=== PATIENT | female | born 1970 | race Caucasian/White ===

== ENCOUNTER 2016-06-23 18:10 | Emergency (ER) | payer OTHER ==
[2016-06-23 18:40] VITALS: BP 143/93; PULSE 61; TEMP 98; BMI 24.7
--- NOTE | 2016-06-23 19:47 | PDOC ---
[id number]/SORE THROAT Time Seen by Provider: 06/23/16 19:47 History Source: Patient - History of Present Illness Initial Comments: 06/23/16 20:03 46 YEAR OLD FEMALE WITH dysuria and suprapubic pain x1 day. + chills denies fever, NV, flank pain. patient also complaining of sore throat since last night. no drooling, mild discomfort with swallowing. Past History - Past Medical History Allergies/Adverse Reactions: Allergies Allergy/AdvReac Type Severity Reaction Status Date / Time No Known Allergies Allergy Verified 06/23/16 18:36 Home Medications: Ambulatory Orders Nitrofurantoin Monohyd/M-Cryst [Macrobid -] 100 mg PO BID #14 capsule 06/23/16 Asthma: No Cancer: No Cardiac Disorders: No Diabetes: Yes (GESTATIONAL) HTN: No Seizures: No Thyroid Disease: No - Surgical History Cholecystectomy: Yes - Reproductive History Spontaneous : 0 - Immunization History Immunization Up to Date: Yes - Psycho/Social/Smoking Cessation Hx Anxiety: No Suicidal Ideation: No Smoking Status: No Smoking History: Never smoked Number of Cigarettes Smoked Daily: 0 Information on smoking cessation initiated: No Hx Alcohol Use: No Drug/Substance Use Hx: No Substance Use Type: None Hx Substance Use Treatment: No Abd/GI Specific PMHX - Complaint Specific PMHX Gall Bladder Disease: No GERD: No Irritable Bowel Synd (IBS): No Pancreatitis: No Review of Systems - Review of Systems Able to Perform ROS?: Yes Is the patient limited Albanian proficient: No HEENTM: Yes: Throat Pain ABD/GI: No: Symptoms Reported, See HPI, Abdominal Distended, Abd. Pain w/ defecation, Blood Streaked Bowels, Constipated, Diarrhea, Difficulty Swallowing , Nausea, Poor Appetite, Poor Fluid Intake, Rectal Bleeding, Vomiting, Indigestion, Abdominal cramping, Tarry Stools, Other : Yes: Dysuria, Frequency. No: Symptoms Reported, See HPI, Burning, Discharge , Flank Pain, Hematuria, Incontinence, Pain, Urgency, Testicular Mass, Testicular Swelling, Lesions, Testicular Pain, Other *Physical Exam - Vital Signs Last Vital Signs Temp Pulse Resp BP Pulse Ox 98 F 61 18 143/93 98 06/23/16 18:34 06/23/16 18:34 06/23/16 18:34 06/23/16 18:34 06/23/16 18:34 - Physical Exam General Appearance: Yes: Appropriately Dressed HEENT: positive: Other (mild pharyngeal erythema) Respiratory/Chest: positive: Lungs Clear, Normal Breath Sounds Cardiovascular: positive: Regular Rhythm, Regular Rate Gastrointestinal/Abdominal: positive: Normal Bowel Sounds, Tender (suprapubic tenderness), Soft Musculoskeletal: positive: Normal Inspection. negative: CVA Tenderness Extremity: positive: Normal Capillary Refill, Normal Inspection, Normal Range of Motion Integumentary: positive: Normal Color, Dry, Warm Neurologic: positive: Fully Oriented, Alert, Normal Mood/Affect, Normal Response , Motor Strength 5/5 Progress Note - Progress Note Progress Note: A: UTI P: UA UCX *DC/Admit/Observation/Transfer Diagnosis at time of Disposition: UTI (urinary tract infection) Qualifiers: Urinary tract infection type: acute cystitis Hematuria presence: with hematuria Qualified Code(s): N30.01 - Acute cystitis with hematuria - Discharge Dispostion Disposition: HOME - Prescriptions Prescriptions: Nitrofurantoin Monohyd/M-Cryst [Macrobid -] 100 mg PO BID #14 capsule - Referrals Referrals: Jonathan West [Primary Care Provider] - - Patient Instructions Printed Discharge Instructions: Urinary Tract Infection Additional Instructions: drink plenty of fluids. take macrobid as prescribed. follow up with your doctor
[2016-06-23 20:04] LABS: URINE APPEARANCE SLCLOUDY; URINE BILIRUBIN NEGATIVE (NEGATIVE); URINE COLOR LTYELLOW; URINE GLUCOSE (UA) NEGATIVE (NEGATIVE); URINE KETONE NEGATIVE (NEGATIVE); URINE NITRITE NEGATIVE (NEGATIVE); URINE PROTEIN NEGATIVE (NEGATIVE); URINE UROBILINOGEN NEGATIVE E.U./dl (0.2-1.0)
[2016-06-23 20:08] LABS: URINE BLOOD 2+ (NEGATIVE); URINE LEUK ESTERASE 2+ (NEGATIVE)
[2016-06-23 20:09] LABS: URINE BACTERIA RARE /hpf (NONE SEEN); URINE RBC 5 /hpf (0-3); URINE WBC 40 /hpf (3-5)
[2016-06-23] MEDS ORDERED: NITROFURANTOIN MACROCRYSTAL 50 MG CAPSULE (FP) PO SCH (20:30)
[2016-06-23] MEDS ORDERED: NITROFURANTOIN MACROCRYSTAL 50 MG CAPSULE (FP) ONE (20:32)
== END 2016-06-23 20:38 | disposition home or self-care (01) ==
LOC: JER 18:10 → JERFT 18:10 → JER 20:38
DX: N30.01 Acute cystitis with hematuria (principal); Z86.32 Personal history of gestational diabetes
CPT/HCPCS: 81003; 81015; 87070; 87086; 87430; 99283-25

== ENCOUNTER 2016-07-18 17:21 | Emergency (ER) | payer OTHER ==
[2016-07-18 17:50] VITALS: BP 139/88; PULSE 63; TEMP 97; BMI 25.0
[2016-07-18] MEDS ORDERED: CYCLOBENZAPRINE HCL 10 MG TABLET (FP) PO ONE (18:44)
[2016-07-18] MEDS ORDERED: KETOROLAC TROMETHAMINE 60 MG/2 ML VIAL IM ONE (18:44)
--- NOTE | 2016-07-18 18:50 | PDOC ---
History of Present Illness - General Chief Complaint: Back Pain Stated Complaint: BACK PAIN Time Seen by Provider: 07/18/16 18:37 History Source: Patient - History of Present Illness Occurred: reports: other Pain Location: reports: back Past History - Past Medical History Allergies/Adverse Reactions: Allergies Allergy/AdvReac Type Severity Reaction Status Date / Time No Known Allergies Allergy Verified 07/18/16 17:50 Home Medications: Ambulatory Orders Nitrofurantoin Monohyd/M-Cryst [Macrobid -] 100 mg PO BID #14 capsule 06/23/16 Cyclobenzaprine HCl [Flexeril 10 mg] 10 mg PO TID PRN #9 tablet 07/18/16 Ibuprofen [Motrin -] 800 mg PO Q6H #30 tablet 07/18/16 Asthma: No Cancer: No Cardiac Disorders: No Diabetes: Yes (GESTATIONAL) HTN: No Seizures: No Thyroid Disease: No - Surgical History Cholecystectomy: Yes - Reproductive History Spontaneous : 0 - Immunization History Immunization Up to Date: Yes - Psycho/Social/Smoking Cessation Hx Anxiety: No Suicidal Ideation: No Smoking Status: No Smoking History: Never smoked Have you smoked in the past 12 months: No Number of Cigarettes Smoked Daily: 0 Information on smoking cessation initiated: No Hx Alcohol Use: No Drug/Substance Use Hx: No Substance Use Type: None Hx Substance Use Treatment: No Review of Systems - Review of Systems Constitutional: No: Chills, Fever ABD/GI: No: Abdominal cramping : No: Burning, Dysuria, Flank Pain, Hematuria Musculoskeletal: No: Muscle Weakness Neurological: No: Numbness, Tingling, Weakness *Physical Exam - Vital Signs Last Vital Signs Temp Pulse Resp BP Pulse Ox 97.0 F L 63 20 139/88 100 07/18/16 17:46 07/18/16 17:46 07/18/16 17:46 07/18/16 17:46 07/18/16 17:46 - Physical Exam General Appearance: Yes: Appropriately Dressed. No: Apparent Distress HEENT: positive: Normal Voice Neck: positive: Supple Respiratory/Chest: negative: Respiratory Distress Gastrointestinal/Abdominal: positive: Soft. negative: Tender Musculoskeletal: positive: Normal Inspection, Other (+ttp to R lumbar area). negative: CVA Tenderness Extremity: positive: Normal Inspection Integumentary: positive: Dry, Warm Neurologic: positive: Fully Oriented, Alert, Normal Mood/Affect Medical Decision Making - Medical Decision Making 07/18/16 18:47 46-year-old female, endorses history of chronic lower back pain, p/w worsening of her back pain 1 week after lifting up her 7-year-old special needs stepdaughter. Pain located to R lower back, does not radiate and no lower extremity weakness, saddle anesthesia or bowel or bladder incontinence. Taking tylenol w/no relief. Patient states she had an MRI last year of her lower back which did not reveal any abnormalities. Follows up with her PMD. See exam Acute on chronic back pain No red flags at this time, i.e. cauda equina, infxn -Pain control -Reassess 07/18/16 19:15 Pt reports feeling better and requesting discharge. Rxs sent to pharmacy. Pt to f/u with PMD if pain persists *DC/Admit/Observation/Transfer Diagnosis at time of Disposition: Back pain Qualifiers: Back pain location: low back pain Chronicity: acute Back pain laterality: right Sciatica presence: without sciatica Qualified Code(s): M54.5 - Low back pain - Discharge Dispostion Disposition: HOME Condition at time of disposition: Improved - Prescriptions Prescriptions: Cyclobenzaprine HCl [Flexeril 10 mg] 10 mg PO TID PRN #9 tablet PRN Reason: Back Pain Ibuprofen [Motrin -] 800 mg PO Q6H #30 tablet - Referrals Referrals: Jonathan West [Primary Care Provider] - - Patient Instructions Printed Discharge Instructions: Low Back Pain Additional Instructions: Take medications as prescribed and follow-up with your PMD
[2016-07-18] MEDS ORDERED: CYCLOBENZAPRINE HCL 10 MG TABLET (FP) ONE (19:05)
[2016-07-18] MEDS ORDERED: KETOROLAC TROMETHAMINE 60 MG/2 ML VIAL ONE (19:05)
== END 2016-07-18 19:24 | disposition home or self-care (01) ==
LOC: JERFT 17:21
PROC: 3E0233Z Introduction of Anti-inflammatory into Muscle, Percutaneous Approach (ICD-10-PCS; principal; 2016-07-18)
DX: M54.5 Low back pain (principal); X50.0XXA Overexertion from strenuous movement or load, initial encounter; Y93.F2 Activity, caregiving, lifting; Y92.038 Other place in apartment as the place of occurrence of the external cause; Y99.8 Other external cause status
CPT/HCPCS: 96372; 99281-25

== ENCOUNTER 2016-07-24 20:56 | Emergency (ER) | payer OTHER ==
--- NOTE | 2016-07-24 21:05 | PDOC ---
History of Present Illness <Jimmy Phelps - Last Filed: 07/24/16 22:04> - History of Present Illness Initial Comments: 07/24/16 22:12 Patient is a 46 year old female with no significant medical hx who is presenting to the ED with three days of sore throat, difficulty swallowing, low grade fever, and rash. The patient endorses a rash that is all over and non- itching. Patient is accompanied by who states he's been giving her benadryl and aleve. Patient reports her children had strep throat two weeks ago. Denies chest pain, shortness of breath, abdominal pain, nausea, vomiting, diarrhea, or complaints. <Lena Gaines - Last Filed: 07/24/16 22:24> - General Chief Complaint: Rash Stated Complaint: SORE THROAT Time Seen by Provider: 07/24/16 21:04 Past History - Past Medical History Asthma: No Cancer: No Cardiac Disorders: No Diabetes: Yes (GESTATIONAL) HTN: No Seizures: No Thyroid Disease: No - Surgical History Cholecystectomy: Yes - Reproductive History Spontaneous : 0 - Immunization History Immunization Up to Date: Yes - Psycho/Social/Smoking Cessation Hx Anxiety: No Suicidal Ideation: No Smoking Status: No Smoking History: Never smoked Have you smoked in the past 12 months: No Number of Cigarettes Smoked Daily: 0 Hx Alcohol Use: No Drug/Substance Use Hx: No Substance Use Type: None Hx Substance Use Treatment: No <Jimmy Phelps - Last Filed: 07/24/16 22:04> <Lena Gaines - Last Filed: 07/24/16 22:24> - Past Medical History Allergies/Adverse Reactions: Allergies Allergy/AdvReac Type Severity Reaction Status Date / Time No Known Allergies Allergy Verified 07/24/16 21:06 Home Medications: Ambulatory Orders NK [No Known Home Medication] 07/24/16 Review of Systems - Review of Systems Comments:: 07/24/16 22:19 CONSTITUTIONAL: Low grade fever. No chills, no fatigue EYES: No visual changes ENT: Sore throat, difficulty swallowing. No ear pain CARDIOVASCULAR: No chest pain, no palpitations RESPIRATORY: No cough, no SOB GI: No abdominal pain, no nausea, no vomiting, no constipation, no diarrhea GENITOURINARY: No dysuria, no frequency, no hematuria MUSKULOSKELETAL: No backpain, no joint pain, no myalgias SKIN: Rash NEURO: No headache <Lena Gaines - Last Filed: 07/24/16 22:24> *Physical Exam - Vital Signs Last Vital Signs Temp Pulse Resp BP Pulse Ox 98.2 F 79 14 144/94 99 07/24/16 21:06 07/24/16 21:06 07/24/16 21:06 07/24/16 21:06 07/24/16 21:06 - Physical Exam Comments: 07/24/16 22:22 CONSTITUTIONAL: Well-appearing; well-nourished; in no apparent distress HEAD: Normocephalic; atraumatic EYES: PERRL; EOM intact ENMT: External appears normal; Minimally erythematous posterior pharynx; Uvula is midline and non-edematous NECK: Supple; non-tender; Minimally enlarged bilateral anterior cervical lymphadenopathy CARD: Normal S1, S2; no murmurs, rubs, or gallops RESP: Normal chest excursion with respiration; breath sounds clear and equal bilaterally; no wheezes, rhonchi, or rales ABD: Soft, non-distended; non-tender; no palpable organomegaly, no palpable hernias EXT: Normal ROM in all four extremities; non-tender to palpation; distal pulses intact SKIN: Warm, dry, urticarial rash upper trapezius bilaterally NEURO: No focal neurological deficiencies. <Lena Gaines - Last Filed: 07/24/16 22:24> ED Treatment Course - ADDITIONAL ORDERS Additional order review: 07/24/16 21:19 Group A Strep Rapid Antigen - Final Throat - Medications Given in the ED: ED Medications Discontinued Medications Generic Name Dose Route Start Last Admin Trade Name Freq PRN Reason Stop Dose Admin Diphenhydramine HCl 50 mg 07/24/16 21:14 07/24/16 21:21 Benadryl Injection - IM 07/24/16 21:15 50 mg ONCE ONE Administration <Lena Gaines - Last Filed: 07/24/16 22:24> Medical Decision Making - Medical Decision Making 07/24/16 22:05 Patient is well-appearing 46-year-old female who presents with dysphagia, mild nonproductive cough, nasal congestion and new onset rash to the upper trapezial area bilaterally. In the ER, patient is awake and alert, without evidence of respiratory distress. Oropharynx is minimally erythematous, uvula is midline and is not edematous. There is no stridor. Patient is negative for group A strep. I Suspect upper respiratory infection. Patient's rash is likely related to a contact dermatitis (hypersensitivity reaction type I with urticaria) related to the metal in her bra. Will treat with diphenhydramine. Will discharge with outpatient follow-up as needed. <Jimmy Phelps - Last Filed: 07/24/16 22:04> *DC/Admit/Observation/Transfer - Attestations Physician Attestion: 07/24/16 22:04 The documentation was prepared by the scribe under my direct supervision. I have reviewed the documentation which correctly represents the findings, medical decision-making and critical action taken by me. <Jimmy Phelps - Last Filed: 07/24/16 22:04> - Attestations Scribe Attestion: 07/24/16 22:24 Documentation prepared by Lena Gaines, acting as medical stenographer for Jimmy Phelps MD. <Lena Gaines - Last Filed: 07/24/16 22:24> Diagnosis at time of Disposition: Rash Upper respiratory infection Qualifiers: URI type: unspecified URI Qualified Code(s): J06.9 - Acute upper respiratory infection, unspecified - Discharge Dispostion Disposition: HOME Condition at time of disposition: Stable - Referrals Referrals: Jonathan West [Primary Care Provider] - - Patient Instructions Printed Discharge Instructions: DI for Viral Upper Respiratory Infection -- Adult, DI for Rash
[2016-07-24 21:08] VITALS: BP 144/94; PULSE 79; TEMP 98.2; BMI 25.2
== END 2016-07-24 22:28 | disposition home or self-care (01) ==
LOC: JER 20:56
PROC: 3E023GC Introduction of Other Therapeutic Substance into Muscle, Percutaneous Approach (ICD-10-PCS; principal; 2016-07-24)
DX: J06.9 Acute upper respiratory infection, unspecified (principal); L50.0 Allergic urticaria
CPT/HCPCS: 87070; 87430; 99281-25

== ENCOUNTER 2016-10-16 04:44 | Emergency (ER) | payer OTHER ==
[2016-10-16 05:04] LABS: PH,URINE 7.5 (5.0-8.0); URINE APPEARANCE CLEAR; URINE BILIRUBIN NEGATIVE (NEGATIVE); URINE BLOOD 3+ (NEGATIVE); URINE COLOR LT. YELLOW; URINE GLUCOSE (UA) NEGATIVE (NEGATIVE); URINE KETONE NEGATIVE (NEGATIVE); URINE UROBILINOGEN 0.2 mg/dL (0.2-1.0)
[2016-10-16 05:05] LABS: URINE LEUK ESTERASE 2+ (NEGATIVE); URINE NITRITE POSITIVE (NEGATIVE); URINE PROTEIN 2+ (NEGATIVE)
--- NOTE | 2016-10-16 05:09 | PDOC ---
*Physical Exam - Vital Signs Last Vital Signs Temp Pulse Resp BP Pulse Ox 97.3 F L 85 20 134/87 97 10/16/16 05:00 10/16/16 05:00 10/16/16 05:00 10/16/16 05:00 10/16/16 05:00 ED Treatment Course - ADDITIONAL ORDERS Additional order review: Laboratory Results 10/16/16 04:50 Urine Color Lt. yellow Urine Appearance Clear Urine pH 7.5 D Urine Protein 2+ H Urine Glucose (UA) Negative Urine Ketones Negative Urine Blood 3+ H Urine Nitrite Positive Urine Bilirubin Negative Urine Urobilinogen 0.2 Ur Leukocyte Esterase 2+ H Medical Decision Making - Medical Decision Making 10/16/16 05:08 agree with care from YULISSA Pringle *DC/Admit/Observation/Transfer Diagnosis at time of Disposition: UTI (urinary tract infection) - Discharge Dispostion Disposition: HOME Condition at time of disposition: Stable - Prescriptions Prescriptions: Phenazopyridine HCl [Azo Standard] 95 mg PO Q8H PRN #14 tablet PRN Reason: Pain Nitrofurantoin Monohyd/M-Cryst [Macrobid -] 100 mg PO BID #14 capsule - Referrals Referrals: Jonathan West [Primary Care Provider] - - Patient Instructions Printed Discharge Instructions: DI for Urinary Tract Infection (UTI) Additional Instructions: Please take medications as prescribed and complete the entire course of antibiotics. If you experience any fever, chills, nausea, vomiting, or any new or worsening symptoms, please return to the ER.
[2016-10-16] MEDS ORDERED: PHENAZOPYRIDINE HCL 100 MG TABLET (FP) PO ONE (05:10)
--- NOTE | 2016-10-16 05:11 | PDOC ---
History of Present Illness - General Chief Complaint: Urinary Problem Stated Complaint: PAIN WHEN URINATING Time Seen by Provider: 10/16/16 05:01 - History of Present Illness Initial Comments: 10/16/16 05:09 CHIEF COMPLAINT: HISTORY OF PRESENT ILLNESS: No recent travel or sick contacts. PAST MEDICAL HISTORY: Denies past medical history FAMILY HISTORY: Denies SOCIAL HISTORY: Lives at home with ____. Occupation: . Denies tobacco, alcohol, illicit drug use. SURGICAL HISTORY: Denies ALLERGIES: No known drug allergies REVIEW OF SYSTEMS General/Constitutional: Denies fever or chills. Denies weakness, weight change. HEENT: Denies change in vision. Denies ear pain or discharge. Denies sore throat. Cardiovascular: Denies chest pain or shortness of breath. Respiratory: Denies cough, wheezing, or hemoptysis. Gastrointestinal: Denies nausea, vomiting, diarrhea or constipation. Denies rectal bleeding. Genitourinary: Denies dysuria, frequency, or change in urination. Musculoskeletal: Denies joint or muscle swelling or pain. Denies neck or back pain. Skin and breasts: Denies rash or easy bruising. Neurologic: Denies headache, vertigo, loss of consciousness, or loss of sensation. Psychiatric: Denies depression or anxiety. Endocrine: Denies increased thirst. Denies abnormal weight change. Hematologic/Lymphatic: Denies anemia, easy bleeding, or history of blood clots. Allergic/Immunologic: Denies hives or skin allergy. Denies latex allergy. PHYSICAL EXAM General Appearance: Well-appearing, appropriately dressed. No apparent distress , no intoxication. HEENT: EOMI, PERRLA, normal ENT inspection, normal voice, TMs normal, pharynx normal. No conjunctival pallor. No photophobia, scleral icterus. Neck: Supple. Trachea midline. No tenderness, rigidity, carotid bruit, stridor , lymphadenopathy, or thyromegaly. Respiratory/Chest: Lungs CTAB. No shortness of breath, chest tenderness, respiratory distress, accessory muscle use. No crackles, rales, rhonchi, stridor , wheezing, dullness Cardiovascular: RRR. S1, S2. No JVD, murmur, bradycardia, tachycardia. Vascular Pulses: Dorsalis-Pedis (R): 2+, Dorsalis-Pedis (L): 2+ Gastrointestinal/Abdominal: Normal bowel sounds. Abdomen soft, non-distended. No tenderness or rebound tenderness. No organomegaly, pulsatile mass, guarding , hernia, hepatomegaly, splenomegaly. Lymphatic: No adenopathy, tenderness. Musculoskeletal/Extremities: Normal inspection. FROM of all extremities, normal capillary refill. Pelvis Stable. No CVA tenderness. No tenderness to extremities, pedal edema, swelling, erythema or deformity. Integumentary: Appropriate color, dry, warm. No cyanosis, erythema, jaundice or rash Neurologic: product test specialist II-XII intact. Fully oriented, alert. Appropriate mood/affect. Motor strength 5/5. No appreciable EOM palsy, facial droop or sensory deficit. Past History - Past Medical History Allergies/Adverse Reactions: Allergies Allergy/AdvReac Type Severity Reaction Status Date / Time No Known Allergies Allergy Verified 10/16/16 05:00 Home Medications: Ambulatory Orders Nitrofurantoin Monohyd/M-Cryst [Macrobid -] 100 mg PO BID #14 capsule 10/16/16 Phenazopyridine HCl [Azo Standard] 95 mg PO Q8H PRN #14 tablet 10/16/16 Asthma: No Cancer: No Cardiac Disorders: No Diabetes: Yes (GESTATIONAL) HTN: No Seizures: No Thyroid Disease: No - Surgical History Cholecystectomy: Yes - Reproductive History Spontaneous : 0 - Immunization History Immunization Up to Date: Yes - Psycho/Social/Smoking Cessation Hx Anxiety: No Suicidal Ideation: No Smoking Status: No Smoking History: Never smoked Have you smoked in the past 12 months: No Number of Cigarettes Smoked Daily: 0 Information on smoking cessation initiated: No Hx Alcohol Use: No Drug/Substance Use Hx: No Substance Use Type: None Hx Substance Use Treatment: No Abd/GI Specific PMHX - Complaint Specific PMHX Gall Bladder Disease: No GERD: No Irritable Bowel Synd (IBS): No Pancreatitis: No *Physical Exam - Vital Signs Last Vital Signs Temp Pulse Resp BP Pulse Ox 97.3 F L 85 20 134/87 97 10/16/16 05:00 10/16/16 05:00 10/16/16 05:00 10/16/16 05:00 10/16/16 05:00 ED Treatment Course - ADDITIONAL ORDERS Additional order review: Laboratory Results 10/16/16 04:50 Urine Color Lt. yellow Urine Appearance Clear Urine pH 7.5 D Urine Protein 2+ H Urine Glucose (UA) Negative Urine Ketones Negative Urine Blood 3+ H Urine Nitrite Positive Urine Bilirubin Negative Urine Urobilinogen 0.2 Ur Leukocyte Esterase 2+ H *DC/Admit/Observation/Transfer Diagnosis at time of Disposition: UTI (urinary tract infection) Qualifiers: Urinary tract infection type: site unspecified Hematuria presence: with hematuria Qualified Code(s): N39.0 - Urinary tract infection, site not specified ; R31.9 - Hematuria, unspecified - Discharge Dispostion Disposition: HOME Condition at time of disposition: Stable Admit: No - Prescriptions Prescriptions: Phenazopyridine HCl [Azo Standard] 95 mg PO Q8H PRN #14 tablet PRN Reason: Pain Nitrofurantoin Monohyd/M-Cryst [Macrobid -] 100 mg PO BID #14 capsule - Referrals Referrals: Jonathan West [Primary Care Provider] - - Patient Instructions Printed Discharge Instructions: DI for Urinary Tract Infection (UTI) Additional Instructions: Please take medications as prescribed and complete the entire course of antibiotics. If you experience any fever, chills, nausea, vomiting, or any new or worsening symptoms, please return to the ER.
[2016-10-16] MEDS ORDERED: PHENAZOPYRIDINE HCL 100 MG TABLET (FP) ONE (05:14)
[2016-10-16] MEDS ORDERED: NITROFURANTOIN MACROCRYSTAL 50 MG CAPSULE (FP) ONE (05:14)
[2016-10-16] MEDS ORDERED: NITROFURANTOIN MACROCRYSTAL 50 MG CAPSULE (FP) PO SCH (05:15)
[2016-10-16 05:16] LABS: URINE BACTERIA MODERATE /hpf (NONE SEEN); URINE MUCUS RARE; URINE RBC 105 /hpf (0-3); URINE WBC 379 /hpf (3-5)
[2016-10-16 05:22] VITALS: BP 134/87; PULSE 85; TEMP 97.3; BMI 25.6
== END 2016-10-16 05:29 | disposition home or self-care (01) ==
LOC: JER 04:44
DX: N39.0 Urinary tract infection, site not specified (principal); R31.9 Hematuria, unspecified
CPT/HCPCS: 81003; 81015; 84703; 87086; 99282-25

== ENCOUNTER 2018-09-22 00:21 | Emergency (ER) | payer OTHER ==
[2018-09-22 02:08] VITALS: BP 100/64; PULSE 62; TEMP 98.4; BMI 28.7
== END 2018-09-22 01:40 | disposition left against medical advice (07) ==
LOC: JER 00:21
DX: Z53.21 Procedure and treatment not carried out due to patient leaving prior to being seen by health care provider (principal)
CPT/HCPCS: 99281-25

== ENCOUNTER 2018-09-22 11:41 | Emergency (ER) | payer OTHER ==
[2018-09-22 11:46] VITALS: BP 171/83; PULSE 61; TEMP 98.1; BMI 26.6
[2018-09-22] MEDS ORDERED: amLODIPine BESYLATE 5 MG TABLET (FP) PO ONE (12:08)
--- NOTE | 2018-09-22 12:36 | PDOC ---
*Physical Exam - Vital Signs Last Vital Signs Temp Pulse Resp BP Pulse Ox 98.1 F 61 18 171/83 H 97 09/22/18 11:43 09/22/18 11:43 09/22/18 11:43 09/22/18 11:43 09/22/18 11:43 - Physical Exam Comments: 09/22/18 12:35 The patient was examined by [LORI Acosta] under my direct supervision. I personally evaluated the patient. I concur with the above findings and the plan of care. 09/22/18 14:01 Pt eloped after evaluation but before ct of head was obtained. ED Treatment Course - Medications Given in the ED: ED Medications Discontinued Medications Generic Name Dose Route Start Last Admin Trade Name Freq PRN Reason Stop Dose Admin Amlodipine Besylate 5 mg 09/22/18 12:08 09/22/18 12:24 Norvasc - PO 09/22/18 12:09 5 mg ONCE ONE Administration *DC/Admit/Observation/Transfer Diagnosis at time of Disposition: HTN (hypertension) - Discharge Dispostion Disposition: ELOPED Condition at time of disposition: Stable - Referrals Referrals: Jonathan West [Primary Care Provider] - - Patient Instructions - Post Discharge Activity
--- NOTE | 2018-09-22 12:44 | PDOC ---
History of Present Illness - General Chief Complaint: Blood Pressure Problem Stated Complaint: HYPERTENSION Time Seen by Provider: 09/22/18 12:08 History Source: Patient Exam Limitations: Clinical Condition - History of Present Illness Initial Comments: 09/22/18 12:42 Patient with no significant past medical history present with complaint of one- week history of elevated blood pressures with headaches and heaviness and left arm. Denies chest pain, shortness of breath, dizziness, blurry vision or change in vision. Denies nausea or vomiting. Denies history of hypertension. Patient had multiple visits for elevated blood pressures. Patient did not follow-up or take anything for symptoms. Timing/Duration: 1 week Past History - Past Medical History Allergies/Adverse Reactions: Allergies Allergy/AdvReac Type Severity Reaction Status Date / Time No Known Allergies Allergy Verified 09/22/18 11:45 Home Medications: Ambulatory Orders Nitrofurantoin Monohyd/M-Cryst [Macrobid -] 100 mg PO BID #14 capsule 10/16/16 Phenazopyridine HCl [Azo Standard] 95 mg PO Q8H PRN #14 tablet 10/16/16 Asthma: No Cancer: No Cardiac Disorders: No COPD: No Diabetes: Yes (GESTATIONAL) HTN: Yes (???) Seizures: No Thyroid Disease: No - Surgical History Cholecystectomy: Yes - Reproductive History Spontaneous : 0 - Immunization History Immunization Up to Date: Yes - Suicide/Smoking/Psychosocial Hx Smoking Status: No Smoking History: Never smoked Have you smoked in the past 12 months: Yes Number of Cigarettes Smoked Daily: 10 Information on smoking cessation initiated: No Hx Alcohol Use: No Drug/Substance Use Hx: No Substance Use Type: None Hx Substance Use Treatment: No Review of Systems - Review of Systems Able to Perform ROS?: Yes Is the patient limited [place] proficient: No Constitutional: No: Chills, Fever, Malaise HEENTM: No: Symptoms Reported, See HPI, Eye Pain, Blurred Vision, Tearing, Recent change in vision, Double Vision, Cataracts, Ear Pain, Ocular Prothesis, Ear Discharge, Nose Pain, Nose Congestion, Tinnitus, Nose Bleeding, Hearing Loss , Throat Pain, Throat Swelling, Mouth Pain, Dental Problems, Difficulty Swallowing, Mouth Swelling, Other Respiratory: No: Symptoms reported, See HPI, Cough, Orthopnea, Shortness of Breath, SOB with Exertion, SOB at Rest, Stridor, Wheezing, Productive cough, Hemoptysis, Other Cardiac (ROS): No: Symptoms Reported, See HPI, Chest Pain, Edema, Irregular Heart Rate, Lightheadedness, Palpitations, Syncope, Chest Tightness, Other ABD/GI: No: Symptoms Reported, Nausea, Vomiting Neurological: Yes: Symptoms reported, See HPI, Headache (intermittent headache) , Other (heaviness in left arm). No: Numbness, Paresthesia, Pre-Existing Deficit, Seizure, Tingling, Weakness, Unsteady Gait, Dizziness All Other Systems: Reviewed and Negative *Physical Exam - Vital Signs Last Vital Signs Temp Pulse Resp BP Pulse Ox 98.1 F 61 18 171/83 H 97 09/22/18 11:43 09/22/18 11:43 09/22/18 11:43 09/22/18 11:43 09/22/18 11:43 - Physical Exam Comments: 09/22/18 14:41 GENERAL: Well developed, well nourished. Awake and alert. No acute distress. HEENT: Normocephalic, atraumatic. PERRLA, EOMI. No conjunctival pallor. Sclera are non- icteric. Moist mucous membranes. Oropharynx is clear. NECK: Supple. Full ROM. No JVD. Carotid pulses 2+ and symmetric, without bruits. No thyromegaly. No lymphadenopathy. CARDIOVASCULAR: Regular rate and rhythm. No murmurs, rubs, or gallops. Distal pulses are 2+ and symmetric. PULMONARY: No evidence of respiratory distress. Lungs clear to auscultation bilaterally. No wheezing, rales or rhonchi. ABDOMINAL: Soft. Non-tender. Non-distended. No rebound or guarding. No organomegaly. Normoactive bowel sounds. MUSCULOSKELETAL Normal range of motion at all joints. No bony deformities or tenderness. 5 out of 5 muscle strength to bilateral upper extremities and lower extremities. EXTREMITIES: No cyanosis. No clubbing. No edema. No calf tenderness. SKIN: Warm and dry. Normal capillary refill. No rashes. NEUROLOGICAL: Alert, awake, appropriate. Cranial nerves 2-12 intact. No motor deficits in the in face, upper extremities and lower extremities. Normoreflexic in the upper and lower extremities. Normal speech. Toes are down-going bilaterally. Gait is normal without ataxia. PSYCHIATRIC: Cooperative. Good eye contact. Appropriate mood and affect. General Appearance: Yes: Nourished, Appropriately Dressed. No: Apparent Distress ED Treatment Course - RADIOLOGY Radiology Studies Ordered: Category Date Time Status HEAD CT WITHOUT CONTRAST [CT] Stat CT Scan 09/22/18 12:40 Ordered - Medications Given in the ED: ED Medications Discontinued Medications Generic Name Dose Route Start Last Admin Trade Name Ethel PRN Reason Stop Dose Admin Amlodipine Besylate 5 mg 09/22/18 12:08 09/22/18 12:24 Norvasc - PO 09/22/18 12:09 5 mg ONCE ONE Administration Medical Decision Making - Medical Decision Making 09/22/18 12:43 Patient with no significant past medical history present with complaint of one- week history of elevated blood pressures with headaches and heaviness and left arm. Denies chest pain, shortness of breath, dizziness, blurry vision or change in vision. Denies nausea or vomiting. Denies history of hypertension. Patient had multiple visits for elevated blood pressures. Patient did not follow-up or take anything for symptoms. Clinical exam unremarkable with normal cardio and neuro exam. 5 out of 5 strength to bilateral upper extremities. Pupil equal and refracted to light bilateral. Normal gait with ambulation. Symptoms likely diagnosed hypertension versus less likely intracranial pathology. Norvasc 5mg by mouth ordered for elevated blood pressures. HCG ordered. Head CT without contrast to evaluate for acute intracranial pathology if negative hCG 09/22/18 14:42 Multiple attempts made to locate patient but patient could not be found anywhere. The patient is sitting no treatment area reported patient walked out as she reported she couldn't wait for the CAT scan. Attempts made to call patient without success. *DC/Admit/Observation/Transfer Diagnosis at time of Disposition: HTN (hypertension) Qualifiers: Hypertension type: unspecified Qualified Code(s): I10 - Essential (primary) hypertension - Discharge Dispostion Disposition: ELOPED Condition at time of disposition: Stable Decision to Admit order: No - Referrals Referrals: Jonathan West [Primary Care Provider] - - Patient Instructions - Post Discharge Activity
== END 2018-09-22 13:50 | disposition left against medical advice (07) ==
LOC: JER 11:41
DX: I10 Essential (primary) hypertension (principal)
CPT/HCPCS: 84703; 99281-25

== ENCOUNTER 2019-12-12 13:43 | Emergency (ER) | payer OTHER ==
[2019-12-12 13:56] VITALS: TEMP 98.7; BMI 27.4
--- NOTE | 2019-12-12 14:13 | PDOC ---
History of Present Illness - General Chief Complaint: Lightheaded Stated Complaint: ALLERGIC REACTION - History of Present Illness Initial Comments: 12/12/19 14:13 HPI: This is a 49 y/o female with a PMH of HTN presenting to the ED because of an allergic reaction and an episode of lightheadedness this morning. She ate chicken salad last night and a few hours later while she was trying to sleep she began having diffuse itching. She denied any sob, mouth or throat swelling, chest pain at the time. She wasn't able to sleep last night because of it. This morning she took 50mg of benadryl which improved the itching and was then able to fall asleep for a few hours. When she woke up she was complaining of dizziness, hand tremors, and weak legs. She fell to the ground, but denied hitting her head or LOC. Patient is currently not complaining of chest pain, SOB, abdominal pain. ROS: GENERAL/CONSTITUTIONAL: No fever/chills, diaphoresis. Yes generalized weakness and fatigue. HEENT: No change in vision. No blurry vision. CARDIOVASCULAR: No chest pain, palpitations or peripheral edema RESPIRATORY: No shortness of breath, dyspnea with exertion, cough, wheezing, or hemoptysis. GASTROINTESTINAL: No abdominal pain, nausea, vomiting, diarrhea or constipation. GENITOURINARY: No dysuria, frequency, or change in urination. MUSCULOSKELETAL: No joint or muscle swelling or pain. SKIN: No rash or hives NEUROLOGIC: Yes lightheadedness. No headache, vertigo, focal weakness, loss of consciousness, or change in strength/sensation. HEMATOLOGIC/LYMPHATIC: No anemia, easy bleeding, or history of blood clots. PMH: HTN PSx: Denied Social Hx: Denied etoh, tobacco, drug use Meds: See nurse note Allergies: See nurse note PE: GENERAL: Awake, alert, and fully oriented, in no acute distress. Patient is appropriately conversational. Laying in bed, appears tired. HEENT: Normocephalic, atraumatic. PERRLA, EOMI. No swelling in mouth or throat. Erythema around eyes. Lid swelling. NECK: Normal ROM and supple. No lymphadenopathy. CARDIOVASCULAR: Regular rate and rhythm, normal S1 and S2, no murmurs, rubs or gallops PULMONARY: No respiratory distress. Breath sounds equal, clear to auscultation bilaterally. ABDOMEN: Soft, nontender, normoactive bowel sounds. EXTREMITIES: Normal range of motion, no edema or erythema, no calf tenderness. NEUROLOGICAL: Cranial nerves II through XII grossly intact. Normal speech, normal gait SKIN: Warm, Dry. Mild periocular edema and lid swelling. PSYCHIATRIC: Cooperative. Appropriate affect. MDM: 12/12/19 14:13 This is a 49 y/o female with a PMH of HTN presenting to the ED because of an allergic reaction and an episode of lightheadedness this morning. - Patient non-toxic in appearance. No respiratory distress. - Patient reported diffuse pruritis, however no complaints in the ED. - Hemodynamically stable, afebrile, saturating 100% on RA. - Will do basic labs - CBC, CMP, troponin - EKG - 1L fluids, 25mg benadryl for eyes EKG: No ST elevations Sinus rhythm No prolonged intervals 12/12/19 16:24 - Patient reports improvement. - Plan to finish liter and ambulate patient. - CBC WNL - CMP WNL - Troponin negative 12/12/19 16:25 - Patient with no respiratory compromise or distress during hospital stay - No chest pain, SOB - Rash seems minimal - Likely dehydrated, tired from not sleeping, and effects of benadryl - Patient is able to ambulate with steady gait and stable vitals - Stable to d/c with return precautions and follow-up Past History - Medical History Allergies/Adverse Reactions: Allergies Allergy/AdvReac Type Severity Reaction Status Date / Time No Known Allergies Allergy Verified 12/12/19 13:46 Asthma: No Cancer: No Cardiac Disorders: No COPD: No Diabetes: Yes (GESTATIONAL) HTN: Yes (???) Seizures: No Thyroid Disease: No - Surgical History Cholecystectomy: Yes - Reproductive History Is Patient Now?: No Spontaneous : 0 - Immunization History Immunization Up to Date: Yes - Psycho-Social/Smoking History Smoking Status: No Smoking History: Never smoked Have you smoked in the past 12 months: Yes Number of Cigarettes Smoked Daily: 10 - Substance Abuse Hx (Audit-C & DAST Scrn) How often the patient has a drink containing alcohol: Never Score: In Men: 4 or > Positive; In Women: 3 or > Positive: 0 Screen Result (Pos requires Nsg. Audit-10AR): Negative In the last yr the pt used illegal drug/Rx for NonMed reason: No Score: Yes response is considered Positive: 0 Screen Result (Positive result requires Nsg. DAST-10): Negative *Physical Exam - Vital Signs Last Vital Signs Temp Pulse Resp BP Pulse Ox 98.7 F 84 20 108/66 100 12/12/19 13:46 12/12/19 13:46 12/12/19 13:46 12/12/19 13:46 12/12/19 13:46 ED Treatment Course - LABORATORY CBC & Chemistry Diagram: 12/12/19 15:05 12/12/19 15:05 Discharge - Discharge Information Problems reviewed: Yes Clinical Impression/Diagnosis: Allergic reaction Qualifiers: Encounter type: initial encounter Qualified Code(s): T78.40XA - Allergy, unspecified, initial encounter Condition: Improved Disposition: HOME - Admission No - Follow up/Referral Referrals: Jonathan West [Primary Care Provider] - - Patient Discharge Instructions Patient Printed Discharge Instructions: DI for General Allergic Reactions, DI for Dizziness-Nonvertigo Additional Instructions: You were seen in the ED because of an allergic reaction and also lightheadedness that occurred this morning. You were given benadryl for the reaction, and basic labs were drawn The labs all came back within normal limits You reported improvement in your symptoms You can take benadryl as needed for itching. Please return to the ED with any new or worsening symptoms. Please return if you are short of breath, have swelling in your mouth or throat, have any chest pain, lose consciousness, or any new or concerning symptoms. - Post Discharge Activity
--- OUTSIDE RECORDS SUMMARY | 2019-12-12 14:26 | XMS ---
:1970 Author Organization [facility] Care Team Providers Name Role Phone West, Angella Unavailable Unavailable West, Angella Unavailable Unavailable West, Angella Unavailable Unavailable West, Angella Unavailable Unavailable Ewst, Angella Unavailable Unavailable West, Angella Unavailable Unavailable West, Angella Unavailable Unavailable West, Angella Unavailable Unavailable West, Angella Unavailable Unavailable West, Angella Unavailable Unavailable West, Angella Unavailable Unavailable Re-disclosure Warning The records that you are about to access may contain information from federally- assisted alcohol or drug abuse programs. If such information is present, then the following federally mandated warning applies: This information has been disclosed to you from records protected by federal confidentiality rules (42 CFR part 2). The federal rules prohibit you from making any further disclosure of this information unless further disclosure is expressly permitted by the written consent of the person to whom it pertains or as otherwise permitted by 42 CFR part 2. A general authorization for the release of medical or other information is NOT sufficient for this purpose. The Federal rules restrict any use of the information to criminally investigate or prosecute any alcohol or drug abuse patient.The records that you are about to access may contain highly sensitive health information, the redisclosure of which is protected by Article 27-F of the [facility] Public Health law. If you continue you may haveaccess to information: Regarding HIV / AIDS; Provided by facilities licensed or operated by the [facility] Office of Mental Health; or Provided by the [facility] Office for People With Developmental Disabilities. If such information is present, then the following [facility] mandated warning applies: This information has been disclosed to you from confidential records which are protected by state law. State law prohibits you from making any further disclosure of this information without the specific written consent of the person to whom it pertains, or as otherwise permitted by law. Any unauthorized further disclosure in violation of state law may result in a fine or skilled nursing sentence or both. A general authorization for the release of medical or other information is NOT sufficient authorization for further disclosure. Encounters Encounter Providers Location Date Indications Data Source(s ) Attender: Angella 12/02/2019 MEDGEN ([place] 12:00:00 AM EDT Medical S ervice) Office Attender: Angella West 12/02/2019 12:00:00 AM EDT [facility] ([facility]) Office Attender: Angella West 12/02/2019 12:00:00 AM EDT [facility] ([facility]) Office Attender: Angella [place] 12/02/2019 12:00:00 AM EDT MEDGEN ([facility] Medical Service) Office Outpatient [address] [facility] 11/04/2019 12:00:00 AM eCW1 ([facility]) Immunizations Vaccine Date Status Description Data Source(s) IIV3 03/12/2019 12:00:00 AM completed MEDGE N ([facility] EST Service) Medications Medication Brand Start Product Dose Route Administrative Pharmacy [facility] Indications Reaction Description Data Name Date Form Instructions Instructions Source(s) Hydrochloro HYDROC 12/01/ TABLET 30 complet HYDR OCHLOROT MEDGEN thiazide 25 HLOROT 2019 ed HIAZIDE ([facility] [place] [facility] Oral HIAZID 12:00: Medical Tablet E:3107 00 AM Service) HYDROCHLORO 98 EDT THIAZIDE:31 0798 OZEMPIC 12/01/ SOLUTION 2 complet OZEMPIC MEDGEN (0.25 MG OR 2020 ed (0.25 MG OR ( [place] 0.5 MG 12:00: 0.5 MG DOSE) Med ical DOSE): 00 AM Service ) 11 EDT metoprolol METOPR 12/01/ TABLET, 30 complet METO PROLOL MEDGEN succinate OLOL 2019 EXTENDED ed SUCCINATE E R ([place] 25 MG SUCCIN 12:00: RELEASE Medical Extended ATE 00 AM Service) Release ER:866 EDT Oral Tablet 430 METOPROLOL SUCCINATE [id number] NITROFURANT MACROB 12/01/ CAPSULE 14 complet MAC ROBID MEDGEN OIN, ID:[id number] 2019 ed ([place] MACROCRYSTA 712 12:00: Medica l LS 25 MG / 00 AM Service) Nitrofurant EDT oin, Monohydrate 75 MG Oral Capsule [Macrobid] MACROBID:[id number] 0.5 ML TRULIC 08/22/ SOLUTION 4 complet TRULICI TY MEDGEN dulaglutide ITY 2019 ed PEN ([facility] [facility] 1.5 MG/ML PEN:15 12:00: Medica l Auto-Inject 51704 00 AM Servic e) or EDT [Trulicity] TRULICITY PEN:[id number] Estradiol ESTRAD 08/22/ CREAM 1 complet ESTRADI OL MEDGEN 0.1 MG/ML IOL 2019 ed VAGINAL ([employer] ay Vaginal VAGINA 12:00: Medical Cream L:3101 00 AM Service) ESTRADIOL 69 EDT VAGINAL:310 169 BYDUREON complet BYDUREON ME DGEN BCISE:2018 ed BCISE ([facility] ay 69 12:00: Medical 00 AM Service) EDT Sulfamethox BACTRI 10/16/ TABLET 10 complet BACT RIM DS MEDGEN azole 800 M 2019 ed ([place] MG / DS:849 12:00: Medical Trimethopri 580 00 AM Service ) m 160 MG EDT Oral Tablet [Bactrim] BACTRIM [id number] Insurance Providers Payer name Policy type Policy ID Covered Covered alliance party's Policy P leti / Coverage alliance party ID relationship to Courtney Inf ormation type courtney [facility] [id number] SP [id number] [facility] [id number] [place] [id number] [place] [id number] 1 [id number] 400 AFF[employer]ITY [id number] SP [id number] Problems, Conditions, and Diagnoses Code Display Name Description Problem Type Effective Data Sour ce(s) Dates I10 [id number] Essential Problem 11/04/2019 eCW1 ([facility] 12:[facility]:00 [facility]) N95.9 Unspecified UNSPECIFIED Problem 08/23/2019 MEDGEN menopausal and MENOPAUSAL AND 12:00:00 AM ([facility] perimenopausal PERIMENOPAUSAL EDT Medica l disorder DISORDER Service) I86.8 Varicose veins of VARICOSE VEINS OF Problem 11/06/2018 MEDGEN other specified OTHER SPECIFIED 12:00:00 AM ([facility] sites SITES EDT Medical Service) Surgeries/Procedures Procedure Description Date Indications Data Source(s) Documentation of current 12/02/2019 MED GEN ([place] medications (procedure) 12:00:00 AM EDT edical Service) Documentation of current 12/02/2019 MED GEN ([place] medications (procedure) 12:00:00 AM EDT edical Service) Documentation of current 09/01/2019 MED GEN ([place] medications (procedure) 12:00:00 AM EDT edical Service) Documentation of current 09/01/2019 MED GEN ([place] medications (procedure) 12:00:00 AM EDT edical Service) Documentation of current 09/01/2019 MED GEN ([place] medications (procedure) 12:00:00 AM EDT edical Service) Documentation of current 09/01/2019 MED GEN ([place] medications (procedure) 12:00:00 AM EDT edical Service) Documentation of current 09/01/2019 MED GEN ([place] medications (procedure) 12:00:00 AM EDT edical Service) Documentation of current 09/01/2019 MED GEN ([place] medications (procedure) 12:00:00 AM EDT edical Service) Documentation of current 09/01/2019 MED GEN ([place] medications (procedure) 12:00:00 AM EDT edical Service) Documentation of current 07/14/2019 MED GEN ([place] medications (procedure) 12:00:00 AM EDT edical Service) Documentation of current 07/14/2019 MED GEN ([place] medications (procedure) 12:00:00 AM EDT edical Service) Documentation of current 03/12/2019 MED GEN ([place] medications (procedure) 12:00:00 AM EST edical Service) Documentation of current 03/12/2019 MED GEN ([place] medications (procedure) 12:00:00 AM EST edical Service) Documentation of current 03/12/2019 MED GEN ([place] medications (procedure) 12:00:00 AM EST edical Service) Results ID Date Data Source ECG Midmark 11/04/2019 10:36:39 AM EDT eCW1 ([facility]) Name Value Range Interpretation Code Description Data Josefina rce(s) Supporting Document(s ) ECG Midmark eCW1 ([facility]) ID Date Data Source [id number] 08/24/2019 12:00:00 AM EDT MEDGEN ([facility]) Name Value Range Interpretation Description Data Sup porting Code Source(s) Document(s ) GLUCOSE 63 mg/dL Below low normal MEDGEN NONFASTING,SERUM ([place] Medical Service) SODIUM, SERUM 137 Normal (applies MEDGEN mEq/L to non-numeric ([place] results) Medical Service) POTASSIUM, SERUM 4.1 Normal (applies MEDGEN mEq/L to non-numeric ([place] results) Medical Service) Carbon dioxide 27 mEq/L Normal (applies MEDGEN [VFr/PPres] in to non-numeric ([place] Gas delivery results) Medical system Service) CHLORIDE, SERUM 101 Normal (applies MEDGEN mEq/L to non-numeric ([place] results) Medical Service) BLOOD UREA 14 mg/dL Normal (applies MEDGEN NITROGEN to non-numeric ([place] results) Medical Service) Anion gap in 13.1 Normal (applies MEDGEN Body fluid mEq/L to non-numeric ([place] results) Medical Service) CREATININE, 0.70 Normal (applies MEDGEN SERUM mg/dL to non-numeric ([place] results) Medical Service) TOTAL PROTEIN 7.6 g/dL Normal (applies MEDGEN to non-numeric ([place] results) Medical Service) CALCIUM, SERUM 9.5 Normal (applies MEDGEN mg/dL to non-numeric ([place] results) Medical Service) Microalbumin 4.6 g/dL Normal (applies MEDGEN [Mass/time] in to non-numeric ([place] Urine collected results) Medical for unspecified Service) duration A/G RATIO 1.53 Normal (applies MEDGEN g/dl to non-numeric ([place] results) Medical Service) Globulin 3.0 gldl Normal (applies MEDGEN [Mass/time] in to non-numeric ([place] 24 hour Urine results) Medical Service) BILIRUBIN, TOTAL 0.6 Normal (applies MEDGEN mg/dL to non-numeric ([place] results) Medical Service) ALT (SGPT) 10 U/L Normal (applies MEDGEN to non-numeric ([place] results) Medical Service) ALKALINE 56 U/L Normal (applies MEDGEN PHOSPHATASE, ALP to non-numeric ([facility] [facility] results) Medical Service) AST 21 U/L Normal (applies MEDGEN to non-numeric ([place] results) Medical Service) EGFR AFR 115 Normal (applies MEDGEN SWAZI mL/min/1 to non-numeric ([place] .73m2 results) Medical Service) EGFR NON AFR 95 Normal (applies MEDGEN SWAZI mL/min/1 to non-numeric ([place] .73m2 results) Medical Service) ID Date Data Source [id number] 08/24/2019 12:00:00 AM EDT MEDGEN ([facility]) Name Value Range Interpretation Code Description Data Josefina rce(s) Supporting Document(s ) MEASLES IGG >300.0 Normal (applies to MEDGEN non-numeric ([place] results) Medical Service) ID Date Data Source [id number] 08/24/2019 12:00:00 AM EDT MEDGEN ([facility]) Name Value Range Interpretation Code Description Data Josefina rce(s) Supporting Document(s ) MUMPS IGG >300.0 Normal (applies to MEDGEN non-numeric results) ([place] [facility]) ID Date Data Source [id number] 08/24/2019 12:00:00 AM EDT MEDGEN ([facility]) Name Value Range Interpretation Description Data Sup porting Code Source(s) Document(s ) RUBELLA IGG 29.2 Normal (applies to MEDGEN AB INDEX non-numeric ([place] results) Medical Service) ID Date Data Source [id number] 08/24/2019 12:00:00 AM EDT [facility] ([facility]) Name Value Range Interpretation Code Description Data Supporting Source(s) Document(s ) VARICELLA- 2768 INDEX Normal (applies to MEDGEN ZOSTER non-numeric ([place] VIRUS IGG results) Medical Service) ID Date Data Source [id number] 08/24/2019 12:00:00 AM EDT MEDGEN ([facility]) Name Value Range Interpretation Description Data Sup porting Code Source(s) Document(s ) WBC 4.9 Normal (applies MEDGEN 10(3)/uL to non-numeric ([place] results) Medical Service) RBC 4.2 Normal (applies MEDGEN 10(6)/uL to non-numeric ([place] results) Medical Service) Hematocrit 37.3 % Normal (applies MEDGEN [Pure volume to non-numeric ([place] fraction] of results) Medical Blood by Service) Automated count Hemoglobin 11.7 g/dL Below low normal MEDGEN [Mass/volume] ([place] in Mixed venous Medical blood by Service) Oximetry MCV 89.2 fL Normal (applies MEDGEN to non-numeric ([place] results) Medical Service) MCH 28 pg Normal (applies MEDGEN to non-numeric ([place] results) Medical Service) MCHC 31 g/dL Normal (applies MEDGEN to non-numeric ([place] results) Medical Service) RDWSD 42.6 fL Normal (applies MEDGEN to non-numeric ([place] results) Medical Service) Platelet Count 298 Normal (applies MEDGEN 10(3)/uL to non-numeric ([place] results) Medical Service) RDWCV 13.1 % Normal (applies MEDGEN to non-numeric ([place] results) Medical Service) MPV 11.8 fL Normal (applies MEDGEN to non-numeric ([place] results) Medical Service) Neutrophil Abs 2.51 Normal (applies MEDGEN 10(3)/uL to non-numeric ([place] results) Medical Service) Lymphocyte Abs 1.56 Normal (applies MEDGEN 10(3)/uL to non-numeric ([place] results) Medical Service) Eosinophil Abs 0.28 Normal (applies MEDGEN 10(3)/uL to non-numeric ([place] results) Medical Service) Monocyte Abs 0.42 Normal (applies MEDGEN 10(3)/uL to non-numeric ([place] results) Medical Service) Basophil Abs 0.07 Normal (applies MEDGEN 10(3)/uL to non-numeric ([place] results) Medical Service) Neutrophil % 51.70 % Normal (applies MEDGEN to non-numeric ([place] results) Medical Service) Immature 0.01 Normal (applies MEDGEN Granulocyte Abs 10(3)/uL to non-numeric ([place] results) Medical Service) Lymphocyte % 32 % Normal (applies MEDGEN to non-numeric ([place] results) Medical Service) Monocyte % 8.7 % Normal (applies MEDGEN to non-numeric ([place] results) Medical Service) Eosinophil % 5.8 % Normal (applies MEDGEN to non-numeric ([place] results) Medical Service) Basophil % 1.4 % Normal (applies MEDGEN to non-numeric ([place] results) Medical Service) Immature 0.20 % Normal (applies MEDGEN Granulocyte % to non-numeric ([place] results) Medical Service) NRBC % 0.0 % Normal (applies MEDGEN to non-numeric ([place] results) Medical Service) NRBC Abs 0.00 Normal (applies MEDGEN 10(3)/uL to non-numeric ([place] results) Medical Service) ID Date Data Source [id number] 08/24/2019 12:00:00 AM EDT [facility] ([facility]) Name Value Range Interpretation Description Data Sup porting Code Source(s) Document(s ) Cholesterol 173 Normal (applies MEDGEN [Moles/volume] mg/dL to non-numeric ([place] in Pericardial results) Medical fluid Service) LDL CALCULATION 82.6 Normal (applies MEDGEN mg/dL to non-numeric ([place] results) Medical Service) CHOL/HDL RATIO 2.58 Normal (applies MEDGEN ratio to non-numeric ([place] results) Medical Service) VLDL CALCULATION 23.4 Normal (applies MEDGEN mg/dl to non-numeric ([place] results) Medical Service) HDL CHOLESTEROL 67 mg/dL Normal (applies [facility] to non-numeric ([place] results) Medical Service) TRIGLYCERIDES 117 Normal (applies MEDGEN mg/dL to non-numeric ([place] results) Medical Service) ID Date Data Source [id number] 08/24/2019 12:00:00 AM EDT [facility] ([facility]) Name Value Range Interpretation Description Data Sup porting Code Source(s) Document(s ) TSH,3RD 1.90 Normal (applies to MEDGEN GENERATION uIU/mL non-numeric ([place] results) Medical Service) T4 TOTAL 7.6 ug/dL Normal (applies to MEDGEN THYROXINE non-numeric ([place] results) Medical Service) T3 TOTAL 90 ng/dL Normal (applies to MEDGEN non-numeric ([place] results) Medical Service) ID Date Data Source [id number] 08/24/2019 12:00:00 AM EDT [facility] ([facility]) Name Value Range Interpretation Code Description Data Supporting Source(s) Document(s ) SARS-CoV- 4.84 AU/mL Normal (applies to MEDGEN 2 IGG QNT non-numeric ([place] results) Medical Service) SARS-CoV- NEGATIVE Normal (applies to MEDGEN 2 IGG non-numeric ([place] results) Medical Service) ID Date Data Source [id number] 08/24/2019 12:00:00 AM EDT MEDGEN ([facility]) Name Value Range Interpretation Description Data Sup porting Code Source(s) Document(s ) Amphetamines NEGATIVE Normal (applies MEDGEN [Presence] in to non-numeric ([place] Stool results) Medical Service) BENZODIAZEPINE NEGATIVE Normal (applies MEDGEN to non-numeric ([place] results) Medical Service) Barbiturates NEGATIVE Normal (applies MEDGEN [Mass/volume] in to non-numeric ([place] [facility] Serum or Plasma results) Medical Service) Methadone NEGATIVE Normal (applies MEDGEN [Mass/volume] in to non-numeric ([place] [facility] Blood results) Medical Service) Opiates NEGATIVE Normal (applies MEDGEN [Presence] in to non-numeric ([place] Unknown substance results) Medical by Confirmatory Service) method Cocaine NEGATIVE Normal (applies MEDGEN [Presence] in to non-numeric ([place] Unknown substance results) Medical by Confirmatory Service) method PCP NEGATIVE Normal (applies MEDGEN (PHENCYCLIDINE) to non-numeric ([place] results) Medical Service) Cannabinoids NEGATIVE Normal (applies MEDGEN [Presence] in to non-numeric ([place] Unknown substance results) Medical by Confirmatory Service) method Propoxyphene NEGATIVE Normal (applies MEDGEN [Presence] in to non-numeric ([place] Meconium by results) Medical Screen method Service) Ethanol POSITIVE Abnormal MEDGEN [Mass/volume] in (applies to ([place] Urine collected non-numeric Medical for unspecified results) Service) duration CREATININE,URINE 81.7 mg/dL Normal (applies MEDGEN to non-numeric ([place] results) Medical Service) ID Date Data Source [id number] 08/24/2019 12:00:00 AM EDT MEDGEN ([facility] Medical Service) Name Value Range Interpretation Description Data Sup porting Code Source(s) Document(s ) TB1 0.0955 Normal (applies MEDGEN to non-numeric ([place] results) Medical Service) NIL 0.0231 Normal (applies MEDGEN to non-numeric ([place] results) Medical Service) TB2 0.051 Normal (applies MEDGEN to non-numeric ([place] results) Medical Service) OLYA >10.0 Normal (applies MEDGEN to non-numeric ([place] results) Medical Service) QUANTIFERON Negative Normal (applies MEDGEN PLUS to non-numeric ([place] results) Medical Service) Procedure Social History Code Duration Value Status Description Data Source(s ) Smoking 12/02/2019 Never smoked completed Never smoked [facility] ([place] 12:00:00 AM EDT Medical S ervice) Smoking 12/02/2019 never, g 3 p3, completed never, g 3 p3, no MED GEN ([place] 12:00:00 AM EDT no tob tob Medical S ervice) Smoking 11/04/2019 Never Smoker completed Never Smoker eCW1 ([facility]en t 12:00:00 AM EDT [facility]) Vital Signs ID Date Data Source UNK Name Value Range Interpretation Code Description Data Source(s) Body height 63 in 63 in MEDGEN ([facility] Medical Servic e) Body weight 150 lb 150 lb MEDGEN ([facility] Servic e) Systolic blood 120 mm[Hg] 120 mm[Hg] MED[facility] ([place] pressure Medical Servic e) Diastolic blood 80 mm[Hg] 80 mm[Hg] MEDGEN ([facility] pressure Medical Servic e) Body mass index 26.6 kg/m2 26.6 kg/m2 MEDGEN ([facility] (BMI) [Ratio] Medical Ser vice) Respiratory rate 16 /min 16 /min MEDGEN ( [place] [facility]) Heart rate 72 /min 72 /min MEDGEN ([facility] Medical Servic e) Diastolic blood 87 mm[Hg] 87 mm[Hg] eCW1 [facility] Systolic blood 123 mm[Hg] 123 mm[Hg] eCW1 ([facility] Carmen t pressure [facility]) Body temperature 98.1 [degF] 98.1 [degF] eCW1 ( [facility]) Heart rate 64 /min 64 /min eCW1 ([facility]) Body mass index 28.53 kg/m2 28.53 kg/m2 eCW1 ([facility] aint (BMI) [Ratio] [facility]) Body weight 156 [lb_av] 156 [lb_av] eCW1 ([facility]) Body height [in_i] eCW1 ([facility]) Body height 63 in 63 in MEDGEN ([facility] Serv[facility] e) Body weight 150 lb 150 lb MED[facility] ([facility]) Systolic blood 126 mm[Hg] 126 mm[Hg] MED[facility] ([place] pressure Medical Serv[facility]) Diastolic blood 80 mm[Hg] 80 mm[Hg] MEDGEN ([facility] pressure Medical Servic e) Body mass index 26.6 kg/m2 26.6 kg/m2 MEDGEN ([facility] (BMI) [Ratio] Medical Ser vice) Respiratory rate 16 /min 16 /min MED[facility] ( [place] [facility]) Heart rate 72 /min 72 /min [facility] ([facility]) Body height 63 in 63 in MEDGEN ([facility] way Medical Servic e) Body weight 150 lb 150 lb MEDGEN ([facility] way Medical Servic e) Systolic blood 130 mm[Hg] 130 mm[Hg] MED[facility] ([place] pressure Medical Servic e) Diastolic blood 80 mm[Hg] 80 mm[Hg] MEDGEN ([facility] pressure Medical Servic e) Body mass index 26.6 kg/m2 26.6 kg/m2 MEDGEN ([facility] (BMI) [Ratio] Medical Ser vice) Respiratory rate 16 /min 16 /min MEDGEN ( [place] [facility]) Heart rate 72 /min 72 /min [facility] ([facility]) Body height 63 in 63 in MEDGEN ([facility] way Medical Servic e) Body weight 145 lb 145 lb MEDGEN ([facility]) Systolic blood 130 mm[Hg] 130 mm[Hg] MEDGEN ([place] pressure Medical Servic [facility]) Diastolic blood 90 mm[Hg] 90 mm[Hg] MEDGEN ([facility] pressure Medical Servic e) Body mass index 25.7 kg/m2 25.7 kg/m2 MEDGEN ([facility] (BMI) [Ratio] Medical Ser vice) Respiratory rate 16 /min 16 /min MEDGEN ( [place] [facility]) Heart rate 72 /min 72 /min [facility] Body height 63 in 63 in MEDGEN ([facility] way Medical Servic e) Body weight 145 lb 145 lb MEDGEN ([facility] way Medical Servic e) Systolic blood 140 mm[Hg] 140 mm[Hg] MEDGEN ([place] pressure Medical Servic e) Diastolic blood 90 mm[Hg] 90 mm[Hg] MEDGEN ([facility] pressure Medical Servic e) Body mass index 25.7 kg/m2 25.7 kg/m2 MEDGEN ([facility] (BMI) [Ratio] Medical Ser vice) Heart rate 72 /min 72 /min [facility] ([facility]) Body height 63 in 63 in MEDGEN ([facility]) Body weight 145 lb 145 lb MEDGEN ([facility]) Systolic blood 150 mm[Hg] 150 mm[Hg] MEDGEN ([place] pressure Medical Servic e) Diastolic blood 90 mm[Hg] 90 mm[Hg] MEDGEN ([facility] pressure Medical Servic e) Body mass index 25.7 kg/m2 25.7 kg/m2 MEDGEN ([facility] (BMI) [Ratio] Medical Ser vice)
[2019-12-12] MEDS ORDERED: SODIUM CHLORIDE 0.9% 500 ML INFUS.BAG IV ONE (14:55)
[2019-12-12 15:24] LABS: BASO % 0.2 % (0-2.0); EOS % 0.1 % (0-4.5); HEMATOCRIT 41.5 % (32.4-45.2); HEMOGLOBIN 13.5 GM/dL (10.7-15.3); LYMPH % 3.7 % (8-40); MCH 28.1 pg (25.7-33.7); MCHC 32.6 g/dl (32.0-36.0); MEAN CELL VOLUME 86.1 fl (80-96); MEAN PLT VOLUME 8.2 fl (7.5-11.1); MONO % 2.3 % (3.8-10.2); NEUT % 93.7 % (42.8-82.8); PLATELET COUNT 389 K/MM3 (134-434); RBC 4.82 M/mm3 (3.60-5.2); RDW 14.9 % (11.6-15.6); WHITE BLOOD COUNT 11.8 K/mm3 (4.0-10.0)
--- NOTE | 2019-12-12 15:39 | PDOC ---
Documentation entered by Eleno Albarado SCRIBE, acting as scribe for Yohan Andrew MD. Yohan Andrew MD: This documentation has been prepared by the Per parmar Xhesika, SCRIBE, under my direction and personally reviewed by me in its entirety. I confirm that the documentation accurately reflects all work, treatment, procedures, and medical decision making performed by me. Attending Attestation - Resident Resident Name: Bianka Mayberry - ED Attending Attestation I have performed the following: I have examined & evaluated the patient, The case was reviewed & discussed with the resident, I agree w/resident's findings & plan, Exceptions are as noted - HPI HPI: 12/12/19 14:32 The patient is a 49 year old female with a significant PMH of htn who presents to the emergency department s/p allergic reaction last night. Pt states she had a chicken Salad from [employer] last night. In the evening she started feelin gvery itchy after she went to bed. Pt states today she took 50mg of Benadryl. Pt states when she woke up around 12 she felt room spinning dizziness, when she walked to the bathroom and endorsed tremors, tried to got to the restroom and fell to the ground. Pt denies hitting her head or LOC. Pt denies any chest pain, n/v, sob, palpitations, abd pain, back pain, shortness of breath or diaphoresis prior to her fall. Pt does not feel light headed while in the ED. No prior history of allergies. No new meds. The patient denies chest pain, shortness of breath. Denies fever, chills, cough, nausea, vomiting, diarrhea, melena, bpr and constipation. Denies dysuria, frequency, urgency and hematuria. Allergies: NKDA PCP: Jonathan West - Physicial Exam PE: 12/12/19 15:37 GENERAL: The patient is awake, alert, and fully oriented, Nontoxic - in no acute distress. HEAD: Normocephalic, atraumatic. EYES: extraocular movements intact, sclera anicteric, conjunctiva clear. ENT: Normal voice, dry mucous membranes. NECK: Normal range of motion, supple LUNGS: Breath sounds equal, clear to auscultation bilaterally. No wheezes, no rhonchi, no rales. HEART: Regular rate and rhythm, normal S1 and S2 without murmur, rub or gallop. ABDOMEN: Soft, nontender, No guarding, no rebound. No CVA tenderness EXTREMITIES: Normal range of motion, no edema. NEUROLOGICAL: No facial assymetry, Normal speech, PSYCH: Normal mood, normal affect. SKIN: Warm, Dry, normal turgor, - Medical Decision Making 12/12/19 15:37 Presyncope, will obtain blood work/ekg to screen for anemia, metabolic derangement will reassess will hydrate no cp/sb to suggest acs suspect her lighteadedness may be related to mediation side effect Heart Score/ECG Review - ECG Impressions Comment:: 12/12/19 15:39 Twelve-lead EKG was performed and reviewed by me. There is normal sinus rhythm with a normal rate. Rate of 78 Normal axis Discharge - Follow up/Referral Referrals: Jonathan West [Primary Care Provider] - - Patient Discharge Instructions - Post Discharge Activity
[2019-12-12 15:46] LABS: ALBUMIN 3.6 g/dl (3.4-5.0); BLOOD UREA NITROGEN 13.5 mg/dL (7-18); CALCIUM 8.6 mg/dL (8.5-10.1); CREATININE 0.9 mg/dL (0.55-1.3); POTASSIUM 3.4 mmol/L (3.5-5.1); TOT PROT 7.3 g/dl (6.4-8.2)
[2019-12-12 17:16] VITALS: BP 101/52; PULSE 90
[2019-12-12 17:18] LABS: PLATELET ESTIMATE ADEQUATE
--- NOTE | 2019-12-13 10:08 | EKG ---
Test Reason : Blood Pressure : / mmHG Vent. Rate : 078 BPM Atrial Rate : 078 BPM P-R Int : 178 ms QRS Dur : 070 ms QT Int : 406 ms P-R-T Axes : 042 017 012 degrees QTc Int : 462 ms NORMAL SINUS RHYTHM CANNOT RULE OUT ANTERIOR INFARCT , AGE UNDETERMINED ABNORMAL ECG WHEN COMPARED WITH ECG OF 09-SEP-2015 23:15, NONSPECIFIC T WAVE ABNORMALITY NOW EVIDENT IN LATERAL LEADS Confirmed by MD Dain, Jonel ([id number]) on 12/13/2019 10:07:54 AM Referred By: Confirmed By:Jonel Gautam MD
== END 2019-12-12 17:13 | disposition home or self-care (01) ==
LOC: JER 13:43
PROC: 3E033GC Introduction of Other Therapeutic Substance into Peripheral Vein, Percutaneous Approach (ICD-10-PCS; principal; 2019-12-12)
DX: T78.40XA Allergy, unspecified, initial encounter (principal)
CPT/HCPCS: 36415; 80053; 82962; 84484; 84703; 85025; 93005; 93010; 99284-25

== ENCOUNTER 2019-12-12 21:10 | Emergency (ER) | payer OTHER ==
--- OUTSIDE RECORDS SUMMARY | 2019-12-12 21:23 | XMS ---
:1970 Author Organization [facility] Care Team Providers Name Role Phone [...] is protected by Article 27-F of the [facility] Public Health law. If you continue you may haveaccess to information: Regarding HIV / AIDS; Provided by facilities licensed or operated by the [facility] Office of Mental Health; or Provided by the [facility] Office for People With Developmental Disabilities. If such information is present, then the following [facility] mandated warning applies: This information [...] law may result in a fine or long term sentence or both. A general authorization for the release of medical or other information is NOT sufficient authorization for further disclosure. Encounters Encounter Providers Location Date Indications Data Source(s ) Attender: Angella 12/02/2019 [facility] ([facility] 12:00:00 AM EDT Medical S maddy) Office Attender: Angella West 12/02/2019 12:00:00 AM EDT [facility] ([facility]) Office Attender: Angella West 12/02/2019 12:00:00 AM EDT [facility] ([facility]) Office Attender: Angella West 12/02/2019 12:00:00 AM EDT [facility] ([facility]) Office Outpatient [address] [facility] 11/04/2019 12:00:00 AM eCW1 ([facility]) Immunizations Vaccine Date Status Description Data Source(s) IIV3 03/12/2019 12:00:00 AM completed MEDGE N ([facility] EST Service) Medications Medication Brand Start Product Dose Route Administrative Pharmacy [facility] Indications Reaction Description Data Name Date Form Instructions Instructions Source(s) Hydrochloro HYDROC 12/01/ TABLET 30 complet HYDR OCHLOROT MEDGEN thiazide 25 HLOROT 2019 ed HIAZIDE ([facility] [place] MG Oral HIAZID 12:00: Medical Tablet E:3107 00 AM Service) HYDROCHLORO 98 EDT THIAZIDE:31 0798 OZEMPIC 12/01/ SOLUTION 2 complet OZEMPIC MED[facility] (0.25 MG OR 2020 ed (0.25 MG OR ( [place] 0.5 MG 12:00: 0.5 MG DOSE) Med ical DOSE): 00 AM Service ) 11 EDT metoprolol METOPR 12/01/ TABLET, 30 complet METO PROLOL MED[facility] succinate OLOL 2019 EXTENDED ed SUCCINATE E R ([place] 25 MG SUCCIN 12:00: RELEASE Medical Extended ATE 00 AM Service) Release ER:[id number] EDT Oral Tablet 430 METOPROLOL SUCCINATE [id number] NITROFURANT MACROB 12/01/ CAPSULE 14 complet MAC ROBMARIA A MEDGEN OIN, ID:[id number] 2019 ed ([place] MACROCRYSTA 712 12:00: Medica l LS 25 MG / 00 AM Service) Nitrofurant EDT oin, Monohydrate 75 MG Oral Capsule [Macrobid] MACROBID:[id number] 0.5 ML TRULIC 08/22/ SOLUTION 4 complet TRULICI TY MED[facility] dulaglutide ITY 2019 ed PEN ([place] [facility] 1.5 MG/ML PEN:15 12:00: Medica l Auto-Inject 06150 00 AM Servic e) or EDT [Trulicity] TRULICITY PEN:[id number] Estradiol ESTRAD 08/22/ CREAM 1 complet ESTRADI OL [facility] 0.1 MG/ML IOL 2019 ed VAGINAL ([facility] Vaginal VAGINA 12:00: Medical Cream L:3101 00 AM Service) ESTRADIOL 69 EDT VAGINAL:310 169 BYDUREON complet BYDUREON ME DGEN BCISE:2018 ed BCISE ([facility] 69 12:00: Medical 00 AM Service) EDT Sulfamethox BACTRI 10/16/ TABLET 10 complet BACT RIM DS MEDGEN azole 800 M 2019 ed ([place] MG / DS:849 12:00: Medical Trimethopri 580 00 AM Service ) m 160 MG EDT Oral Tablet [Bactrim] BACTRIM [id number] Insurance Providers Payer name Policy type Policy ID Covered Covered alliance party's Policy P leti / Coverage alliance party ID relationship to Courtney Inf ormation type courtney GHULAM [id number] SP [id number] [facility] [id number] [id number] [place] [id number] 1 [id number] [employer] [id number] SP [id number] Problems, Conditions, and Diagnoses Code Display Name Description Problem Type Effective Data Sour ce(s) Dates I10 [id number] Essential Problem 11/04/2019 eCW1 ([facility] 12:00:00 AM [facility]) N95.9 Unspecified UNSPECIFIED Problem 08/23/2019 MED[facility] menopausal and MENOPAUSAL AND 12:00:00 AM ([facility] perimenopausal PERIMENOPAUSAL EDT Medica l disorder DISORDER Service) I86.8 Varicose veins of VARICOSE VEINS OF Problem 11/06/2018 [facility] other specified OTHER SPECIFIED 12:00:00 AM ( [place] sites SITES EDT Medical Service) Surgeries/Procedures Procedure Description Date Indications Data Source(s) Documentation of current 12/02/2019 MED [facility] ([place] medications (procedure) 12:00:00 AM EDT edical Service) Documentation of current 12/02/2019 MED [facility] ([place] medications (procedure) 12:00:00 AM EDT edical Service) Documentation of current 09/01/2019 MED [facility] ([place] medications (procedure) 12:00:00 AM EDT edical Service) Documentation of current 09/01/2019 MED GEN ([place] medications (procedure) 12:00:00 AM EDT edical Service) Documentation of current 09/01/2019 MED GEN ([place] medications (procedure) 12:00:00 AM EDT edical Service) Documentation of current 09/01/2019 MED GEN ([place] medications (procedure) 12:00:00 AM EDT edical Service) Documentation of current 09/01/2019 MED GEN ([place] medications (procedure) 12:00:00 AM EDT edical Service) Documentation of current 09/01/2019 MED GEN ([place] medications (procedure) 12:00:00 AM EDT edical Service) Documentation of current 09/01/2019 MED GEN ([place] medications (procedure) 12:00:00 AM EDT edical Service) Documentation of current 07/14/2019 MED [facility] ([place] medications (procedure) 12:00:00 AM EDT edical Service) Documentation of current 07/14/2019 MED GEN ([place] medications (procedure) 12:00:00 AM EDT edical Service) Documentation of current 03/12/2019 MED [facility] ([place] medications (procedure) 12:00:00 AM EST edical Service) Documentation of current 03/12/2019 MED GEN ([place] medications (procedure) 12:00:00 AM EST edical Service) Documentation of current 03/12/2019 MED GEN ([place] medications (procedure) 12:00:00 AM EST M edical Service) Results ID Date Data Source ECG [facility] 11/04/2019 10:36:39 AM EDT eCW1 ([facility]) Name Value Range Interpretation Code Description Data Josefina rce(s) Supporting Document(s ) ECG [facility] eCW1 ([facility]) ID Date Data Source [id number] 08/24/2019 12:00:00 AM EDT [facility] ([facility]) Name Value Range Interpretation Description Data Sup porting Code Source(s) Document(s ) GLUCOSE 63 mg/dL Below low normal [facility] NONFASTING,SERUM ([place] Medical Service) SODIUM, SERUM 137 Normal (applies [facility] mEq/L to non-numeric ([place] results) Medical Service) POTASSIUM, SERUM 4.1 Normal (applies [facility] mEq/L to non-numeric ([place] results) Medical Service) Carbon dioxide 27 mEq/L Normal (applies MED[facility] [VFr/PPres] in to non-numeric ([place] Gas delivery results) Medical system Service) CHLORIDE, SERUM 101 Normal (applies [facility] mEq/L to non-numeric ([place] results) Medical Service) BLOOD UREA 14 mg/dL Normal (applies [facility] NITROGEN to non-numeric ([place] results) Medical Service) Anion gap in 13.1 Normal (applies MED[facility] Body fluid mEq/L to non-numeric ([place] results) Medical Service) CREATININE, 0.70 Normal (applies [facility] SERUM mg/dL to non-numeric ([place] results) Medical Service) TOTAL PROTEIN 7.6 g/dL Normal (applies [facility] to non-numeric ([place] results) Medical Service) CALCIUM, SERUM 9.5 Normal (applies [facility] mg/dL to non-numeric ([place] results) Medical Service) Microalbumin 4.6 g/dL Normal (applies [facility] [Mass/time] in to non-numeric ([place] Urine collected results) Medical for unspecified Service) duration A/G RATIO 1.53 Normal (applies MEDGEN g/dl to non-numeric ([place] results) Medical Service) Globulin 3.0 gldl Normal (applies [facility] [Mass/time] in to non-numeric ([place] 24 hour Urine results) Medical Service) BILIRUBIN, TOTAL 0.6 Normal (applies [facility]GEN mg/dL to non-numeric ([place] results) Medical Service) ALT (SGPT) 10 U/L Normal (applies [facility] to non-numeric ([place] results) Medical Service) ALKALINE 56 U/L Normal (applies [facility] PHOSPHATASE, ALP to non-numeric ([facility] results) Medical Service) AST 21 U/L Normal (applies [facility] to non-numeric ([place] results) Medical Service) EGFR AFR 115 Normal (applies MEDGEN CHINESE mL/min/1 to non-numeric ([place] .73m2 results) Medical Service) EGFR NON AFR 95 Normal (applies MEDGEN CHINESE mL/min/1 to non-numeric ([place] .73m2 results) Medical Service) ID Date Data Source [id number] 08/24/2019 12:00:00 AM EDT MED[facility] ([facility]) Name Value Range Interpretation Code Description Data Josefina rce(s) Supporting Document(s ) MEASLES IGG >300.0 Normal (applies to MEDGEN non-numeric ([place] results) Medical Service) ID Date Data Source [id number] 08/24/2019 12:00:00 AM EDT [facility] ([facility]) Name Value Range Interpretation Code Description Data Josefina rce(s) Supporting Document(s ) MUMPS IGG >300.0 Normal (applies to [facility] non-numeric results) ([facility]) ID Date Data Source [id number] 08/24/2019 12:00:00 AM EDT [facility] ([facility]) Name Value Range Interpretation Description Data Sup porting Code Source(s) Document(s ) RUBELLA IGG 29.2 Normal (applies to MED[facility] AB INDEX non-numeric ([place] results) Medical Service) ID Date Data Source [id number] 08/24/2019 12:00:00 AM EDT [facility] ([facility]) Name Value Range Interpretation Code Description Data Supporting Source(s) Document(s ) VARICELLA- 2768 INDEX Normal (applies to MEDGEN ZOSTER non-numeric ([place] VIRUS IGG results) Medical Service) ID Date Data Source [id number] 08/24/2019 12:00:00 AM EDT [facility] ([facility]) Name Value Range Interpretation Description Data Sup porting Code Source(s) Document(s ) WBC 4.9 Normal (applies MEDGEN 10(3)/uL to non-numeric ([place] results) Medical Service) RBC 4.2 Normal (applies [facility] 10(6)/uL to non-numeric ([place] results) Medical Service) Hematocrit 37.3 % Normal (applies [facility] [Pure volume to non-numeric ([place] fraction] of results) Medical Blood by Service) Automated count Hemoglobin 11.7 g/dL Below low normal MED[facility] [Mass/volume] ([place] in Mixed venous Medical blood by Service) Oximetry MCV 89.2 fL Normal (applies MED[facility] to non-numeric ([place] results) Medical Service) MCH 28 pg Normal (applies [facility] to non-numeric ([place] results) Medical Service) MCHC 31 g/dL Normal (applies [facility] to non-numeric ([place] results) Medical Service) RDWSD 42.6 fL Normal (applies MED[facility] to non-numeric ([place] results) Medical Service) Platelet Count 298 Normal (applies MEDGEN 10(3)/uL to non-numeric ([place] results) Medical Service) RDWCV 13.1 % Normal (applies [facility] to non-numeric ([place] results) Medical Service) MPV 11.8 fL Normal (applies [facility] to non-numeric ([place] results) Medical Service) Neutrophil Abs 2.51 Normal (applies [facility] 10(3)/uL to non-numeric ([place] results) Medical Service) Lymphocyte Abs 1.56 Normal (applies [facility] 10(3)/uL to non-numeric ([place] results) Medical Service) Eosinophil Abs 0.28 Normal (applies [facility] 10(3)/uL to non-numeric ([place] results) Medical Service) Monocyte Abs 0.42 Normal (applies [facility] 10(3)/uL to non-numeric ([place] results) Medical Service) Basophil Abs 0.07 Normal (applies [facility] 10(3)/uL to non-numeric ([place] results) Medical Service) Neutrophil % 51.70 % Normal (applies [facility] to non-numeric ([place] results) Medical Service) Immature 0.01 Normal (applies MEDGEN Granulocyte Abs 10(3)/uL to non-numeric ([place] results) Medical Service) Lymphocyte % 32 % Normal (applies [facility] to non-numeric ([place] results) Medical Service) Monocyte % 8.7 % Normal (applies [facility] to non-numeric ([place] results) Medical Service) Eosinophil % 5.8 % Normal (applies [facility] to non-numeric ([place] results) Medical Service) Basophil % 1.4 % Normal (applies [facility] to non-numeric ([place] results) Medical Service) Immature 0.20 % Normal (applies MEDGEN Granulocyte % to non-numeric ([place] results) Medical Service) NRBC % 0.0 % Normal (applies [facility] to non-numeric ([place] results) Medical Service) NRBC Abs 0.00 Normal (applies MEDGEN 10(3)/uL to non-numeric ([place] results) Medical Service) ID Date Data Source [id number] 08/24/2019 12:00:00 AM EDT MED[facility] ([facility]) Name Value Range Interpretation Description Data Sup porting Code Source(s) Document(s ) Cholesterol 173 Normal (applies MEDGEN [Moles/volume] mg/dL to non-numeric ([place] in Pericardial results) Medical fluid Service) LDL CALCULATION 82.6 Normal (applies [facility]GEN mg/dL to non-numeric ([place] results) Medical Service) CHOL/HDL RATIO 2.58 Normal (applies MEDGEN ratio to non-numeric ([place] results) Medical Service) VLDL CALCULATION 23.4 Normal (applies MEDGEN mg/dl to non-numeric ([place] results) Medical Service) HDL CHOLESTEROL 67 mg/dL Normal (applies [facility] to non-numeric ([place] results) Medical Service) TRIGLYCERIDES 117 Normal (applies [facility]GEN mg/dL to non-numeric ([place] results) Medical Service) ID Date Data Source [id number] 08/24/2019 12:00:00 AM EDT [facility] ([facility]) Name Value Range Interpretation Description Data Sup porting Code Source(s) Document(s ) TSH,3RD 1.90 Normal (applies to MEDGEN GENERATION uIU/mL non-numeric ([place] results) Medical Service) T4 TOTAL 7.6 ug/dL Normal (applies to MED[facility] THYROXINE non-numeric ([place] results) Medical Service) T3 TOTAL 90 ng/dL Normal (applies to [facility] non-numeric ([place] results) Medical Service) ID Date Data Source [id number] 08/24/2019 12:00:00 AM EDT [facility] ([facility]) Name Value Range Interpretation Code Description Data Supporting Source(s) Document(s ) SARS-CoV- 4.84 AU/mL Normal (applies to MEDGEN 2 IGG QNT non-numeric ([place] results) Medical Service) SARS-CoV- NEGATIVE Normal (applies to MED[facility] 2 IGG non-numeric ([place] results) Medical Service) ID Date Data Source [id number] 08/24/2019 12:00:00 AM EDT MED[facility] ([facility] Service) Name Value Range Interpretation Description Data Sup porting Code Source(s) Document(s ) Amphetamines NEGATIVE Normal (applies MEDGEN [Presence] in to non-numeric ([place] Stool results) Medical Service) BENZODIAZEPINE NEGATIVE Normal (applies MEDGEN to non-numeric ([place] results) Medical Service) Barbiturates NEGATIVE Normal (applies [facility] [Mass/volume] in to non-numeric ([facility] [facility] Serum or Plasma results) Medical Service) Methadone NEGATIVE Normal (applies MED[facility] [Mass/volume] in to non-numeric ([place] [facility] Blood results) Medical Service) Opiates NEGATIVE Normal (applies MED[facility] [Presence] in to non-numeric ([place] Unknown substance results) Medical by Confirmatory Service) method Cocaine NEGATIVE Normal (applies MED[facility] [Presence] in to non-numeric ([place] Unknown substance results) Medical by Confirmatory Service) method PCP NEGATIVE Normal (applies MEDGEN (PHENCYCLIDINE) to non-numeric ([place] results) Medical Service) Cannabinoids NEGATIVE Normal (applies MED[facility] [Presence] in to non-numeric ([place] Unknown substance results) Medical by Confirmatory Service) method Propoxyphene NEGATIVE Normal (applies MEDGEN [Presence] in to non-numeric ([place] Meconium by results) Medical Screen method Service) Ethanol POSITIVE Abnormal MED[facility] [Mass/volume] in (applies to ([place] Urine collected non-numeric Medical for unspecified results) Service) duration CREATININE,URINE 81.7 mg/dL Normal (applies MED[facility] to non-numeric ([place] results) Medical Service) ID Date Data Source [id number] 08/24/2019 12:00:00 AM EDT MED[facility] ([facility] Service) Name Value Range Interpretation Description Data Sup porting Code Source(s) Document(s ) TB1 0.0955 Normal (applies [facility] to non-numeric ([place] results) Medical Service) NIL 0.0231 Normal (applies [facility] to non-numeric ([place] results) Medical Service) TB2 0.051 Normal (applies [facility] to non-numeric ([place] results) Medical Service) OLYA >10.0 Normal (applies MED[facility] to non-numeric ([place] results) Medical Service) QUANTIFERON Negative Normal (applies MEDGEN PLUS to non-numeric ([place] results) Medical Service) Procedure Social History Code Duration Value Status Description Data Source(s ) Smoking 12/02/2019 Never smoked completed Never smoked [facility] ([facility] [place] 12:00:00 AM EDT Medical S ervice) Smoking 12/02/2019 never, g 3 p3, completed never, g 3 p3, no MED GEN ([place] 12:00:00 AM EDT no tob tob Medical S ervice) Smoking 11/04/2019 Never Smoker completed Never Smoker eCW1 ([facility] Carmen t 12:00:00 AM EDT [facility]) Vital Signs ID Date Data Source UNK Name Value Range Interpretation Code Description Data Source(s) Body height 63 in 63 in MEDGEN ([facility] Medical Servic e) Body weight 150 lb 150 lb MED[facility] ([facility] Medical Servic e) Systolic blood 120 mm[Hg] 120 mm[Hg] [facility] ([place] pressure Medical Servic e) Diastolic blood 80 mm[Hg] 80 mm[Hg] [facility] ([facility] pressure Medical Servic e) Body mass index 26.6 kg/m2 26.6 kg/m2 MED[facility] ([facility] [address] (BMI) [Ratio] Medical Ser vice) Respiratory rate 16 /min 16 /min [facility] ( [place] [facility]) Heart rate 72 /min 72 /min MED[facility] ([facility] Servic e) Diastolic blood 87 mm[Hg] 87 mm[Hg] eCW1 ([facility]) Systolic blood 123 mm[Hg] 123 mm[Hg] eCW1 ([facility]) Body temperature 98.1 [degF] 98.1 [degF] eCW1 ( [facility]) Heart rate 64 /min 64 /min eCW1 ([facility]) Body mass index 28.53 kg/m2 28.53 kg/m2 eCW1 (S aint (BMI) [Ratio] [facility]) Body weight 156 [lb_av] 156 [lb_av] eCW1 ([facility]) Body height [in_i] eCW1 ([facility]) Body height 63 in 63 in [facility] ([facility]) Body weight 150 [...] Body height 63 in 63 in MEDGEN ([facility] Servic e) Body weight 150 [...] Body height 63 in 63 in MEDGEN ([facility] Servic e) Body weight 145 lb 145 lb [facility] ([facility]) Systolic blood 140 [...]
[2019-12-12 21:27] VITALS: BMI 26.5
--- NOTE | 2019-12-12 21:29 | PDOC ---
History of Present Illness <Kathy Dean - Last Filed: 12/13/19 01:00> - History of Present Illness Initial Comments: 12/12/19 22:48 49yo F garett from today after reported allergic rxn. She presents w/ recurrent dizziness once she got home today. She walked from the bed to the kitchen, and en route her knees became weak. She fell over backwards and hit her back but did not lose consciousness. She remembers the whole event. She reports vertigo x12 minutes during the event that came on suddenly and then subsided. She called 911 because the vertigo for which she came to the hospital this AM returned tonight. 12/12/19 22:51 12/12/19 22:54 <Jonel Carpio - Last Filed: 12/14/19 16:33> - General Chief Complaint: SIRS, Suspected/Possible Stated Complaint: FEVER/POSS COVID Past History <Kathy Dean - Last Filed: 12/13/19 01:00> - Medical History Asthma: No Cancer: No Cardiac Disorders: No COPD: No Diabetes: Yes (GESTATIONAL) HTN: Yes (???) Seizures: No Thyroid Disease: No - Surgical History Cholecystectomy: Yes - Reproductive History Is Patient Now?: No Spontaneous : 0 - Immunization History Immunization Up to Date: Yes - Psycho-Social/Smoking History Smoking Status: No Smoking History: Never smoked Have you smoked in the past 12 months: Yes Number of Cigarettes Smoked Daily: 10 Information on smoking cessation initiated: No - Substance Abuse Hx (Audit-C & DAST Scrn) How often the patient has a drink containing alcohol: Never Score: In Men: 4 or > Positive; In Women: 3 or > Positive: 0 Screen Result (Pos requires Nsg. Audit-10AR): Negative In the last yr the pt used illegal drug/Rx for NonMed reason: No Score: Yes response is considered Positive: 0 Screen Result (Positive result requires Nsg. DAST-10): Negative <Jonel Carpio - Last Filed: 12/14/19 16:33> - Medical History Allergies/Adverse Reactions: Allergies Allergy/AdvReac Type Severity Reaction Status Date / Time No Known Allergies Allergy Verified 12/12/19 21:23 Home Medications: Ambulatory Orders Diphenhydramine [Benadryl -] 25 mg PO PRN PRN 12 Days #4 capsule 12/12/19 Prednisone [Prednisone 50 MG TABLETS] 50 mg PO DAILY #4 tablet 12/12/19 Review of Systems - Review of Systems Able to Perform ROS?: Yes Is the patient limited Arabic proficient: No Constitutional: Yes: Fever (although patient feels warm on exam and triage marked temp as 99.8F). No: Chills, Diaphoresis HEENTM: No: Blurred Vision, Recent change in vision, Nose Congestion, Tinnitus Respiratory: No: Cough, SOB with Exertion, SOB at Rest Cardiac (ROS): No: Chest Pain, Edema, Syncope ABD/GI: Yes: Nausea. No: Diarrhea, Vomiting : No: Burning, Incontinence Musculoskeletal: Yes: Back Pain Integumentary: Yes: Erythema, Pruritus, Rash. No: Bruising Neurological: No: Symptoms reported Endocrine: No: Symptoms Reported Hematologic/Lymphatic: No: Symptoms Reported All Other Systems: Reviewed and Negative <Jonel Carpio - Last Filed: 12/14/19 16:33> *Physical Exam - Vital Signs Last Vital Signs Temp Pulse Resp BP Pulse Ox 98.3 F 76 18 126/84 100 12/13/19 00:01 12/13/19 00:01 12/13/19 00:01 12/13/19 00:01 12/13/19 00:01 <Kathy Dean - Last Filed: 12/13/19 01:00> - Vital Signs Last Vital Signs Temp Pulse Resp BP Pulse Ox 99.8 F H 93 H 20 116/70 100 12/12/19 21:15 12/12/19 21:15 12/12/19 21:15 12/12/19 21:15 12/12/19 21:15 - Physical Exam General Appearance: Yes: Nourished, Appropriately Dressed. No: Apparent Distress HEENT: positive: EOMI, Normal Voice. negative: Rhinorrhea Neck: positive: Supple. negative: Tender Respiratory/Chest: positive: Lungs Clear, Normal Breath Sounds Cardiovascular: positive: Regular Rhythm, Regular Rate Gastrointestinal/Abdominal: positive: Normal Bowel Sounds, Soft Extremity: positive: Normal Capillary Refill, Normal Inspection Integumentary: positive: Normal Color, Dry, Warm, Hives Neurologic: positive: Fully Oriented, Alert, Normal Mood/Affect, Normal Response <Jonel Carpio - Last Filed: 12/14/19 16:33> ED Treatment Course - LABORATORY CBC & Chemistry Diagram: 12/12/19 22:30 - ADDITIONAL ORDERS Additional order review: Laboratory Results 12/12/19 22:30 Creatine Kinase 88 Troponin I < 0.02 12/12/19 22:30 RBC 4.83 MCV 86.5 MCHC 33.2 RDW 14.8 MPV 8.9 Neutrophils % 93.8 H Lymphocytes % 4.4 L Monocytes % 1.6 L Eosinophils % 0.0 D Basophils % 0.2 - Medications Given in the ED: ED Medications Discontinued Medications Generic Name Dose Route Start Last Admin Trade Name Kamleshq PRN Reason Stop Dose Admin Diphenhydramine HCl 50 mg 12/12/19 22:41 12/12/19 23:02 Benadryl Injection - IVPB 12/12/19 22:42 50 mg ONCE ONE Administration Lactated Ringer's 1,000 ml 12/12/19 22:41 12/12/19 22:49 Lactated Ringers Solution IV 12/12/19 22:42 1,000 ml ONCE ONE Administration Lidocaine 1 patch 12/12/19 22:50 12/12/19 23:02 Lidoderm Patch - TP 12/12/19 22:51 1 patch ONCE ONE Administration Methylprednisolone Sodium Succinate 125 mg 12/12/19 22:39 12/12/19 23:02 Solu-Medrol - IVPB 12/12/19 22:40 125 mg ONCE ONE Administration Miscellaneous 1 each 12/12/19 22:00 12/12/19 23:02 Lidoderm Patch Removal MC 1 each DAILY@2200 JOSE L Administration <Kathy Dean - Last Filed: 12/13/19 01:00> - LABORATORY CBC & Chemistry Diagram: 12/12/19 22:30 <Jonel Carpio - Last Filed: 12/14/19 16:33> Discharge - Discharge Information Problems reviewed: Yes <Kathy Dean - Last Filed: 12/13/19 01:00> - Discharge Information Problems reviewed: Yes - Admission No <Jonel Carpio - Last Filed: 12/14/19 16:33> - Discharge Information Clinical Impression/Diagnosis: Urticaria Allergic reaction Qualifiers: Encounter type: subsequent encounter Qualified Code(s): T78.40XD - Allergy, unspecified, subsequent encounter Condition: Stable Disposition: HOME - Additional Discharge Information Prescriptions: Diphenhydramine [Benadryl -] 25 mg PO PRN PRN 12 Days #4 capsule PRN Reason: Allergies Prednisone [Prednisone 50 MG TABLETS] 50 mg PO DAILY #4 tablet - Follow up/Referral Referrals: Jonathan West [Primary Care Provider] - - Patient Discharge Instructions Patient Printed Discharge Instructions: DI for Hives, DI for COVID-19 (Suspected or Confirmed ), Coronavirus Disease 2018 Additional Instructions: You were seen in the ED for vertigo and an allergic reaction. We tested your blood, gave you medicine, and deemed you safe for discharge. We sent you 2 medicines to [facility]. Take the predinisone starting tomorrow morning. Take it daily. Take the benadryl as needed. It can make you sleepy. Do not drive after taking it. Follow up with your primary doctor within 24hours of leaving the ED today, and return if any severe symptoms persist or return. - Post Discharge Activity
[2019-12-12] MEDS ORDERED: LIDOCAINE PATCH REMOVAL MC SCH (22:00)
[2019-12-12] MEDS ORDERED: methylPREDNISolone NA SUCC 125 MG/2 ML VIAL IVPB ONE (22:39)
[2019-12-12] MEDS ORDERED: LACTATED RINGERS SOLUTION 1000 ML INFUS.BAG IV ONE (22:41)
[2019-12-12] MEDS ORDERED: LIDOCAINE 5% TOPICAL PATCH TP ONE (22:50)
[2019-12-12] MEDS ORDERED: LIDOCAINE 5% TOPICAL PATCH ONE (22:51)
[2019-12-12] MEDS ORDERED: methylPREDNISolone NA SUCC 125 MG/2 ML VIAL ONE (22:51)
[2019-12-12 22:56] LABS: BASO % 0.2 % (0-2.0); HEMATOCRIT 41.7 % (32.4-45.2); HEMOGLOBIN 13.9 GM/dL (10.7-15.3); LYMPH % 4.4 % (8-40); MCH 28.7 pg (25.7-33.7); MCHC 33.2 g/dl (32.0-36.0); MEAN CELL VOLUME 86.5 fl (80-96); MEAN PLT VOLUME 8.9 fl (7.5-11.1); MONO % 1.6 % (3.8-10.2); NEUT % 93.8 % (42.8-82.8); PLATELET COUNT 422 K/MM3 (134-434); RBC 4.83 M/mm3 (3.60-5.2); RDW 14.8 % (11.6-15.6); WHITE BLOOD COUNT 11.8 K/mm3 (4.0-10.0)
--- NOTE | 2019-12-12 22:59 | PDOC ---
Attending Attestation - Resident Resident Name: Jonel Carpio - ED Attending Attestation I have performed the following: I have examined & evaluated the patient, The case was reviewed & discussed with the resident, I agree w/resident's findings & plan, Exceptions are as noted - HPI HPI: 49 yo F presents with multiple complaints. She states she was treated in the ED earlier today for an allergic reaction, which she attributes to a chicken salad from [employer] (although she is uncertain what she may have reacted to). She was given benadryl earlier today. However, she also states that she has been having episodic vertigo. She fell backwards earlier today due to dizziness, striking her back. C/o R mid-back pain, L mid-back pain. Denies LOC. No weakness, numbness. Requesting sleeping pills. - Physicial Exam PE: GENERAL: Awake, alert, and fully oriented, in no acute distress HEAD: No signs of trauma EYES: PERRLA, EOMI, sclera anicteric, conjunctiva clear ENT: Auricles normal inspection, hearing grossly normal, nares patent, oropharynx clear without exudates. Moist mucosa NECK: Normal ROM, supple, no lymphadenopathy, JVD, or masses LUNGS: Breath sounds equal, clear to auscultation bilaterally. No wheezes, and no crackles HEART: Regular rate and rhythm, normal S1 and S2, no murmurs, rubs or gallops ABDOMEN: Soft, nontender, normoactive bowel sounds. No guarding, no rebound. No masses EXTREMITIES: Normal range of motion, no edema. No clubbing or cyanosis. No cords, erythema, or tenderness NEUROLOGICAL: Cranial nerves II through XII grossly intact. Normal speech, normal gait. Motor and sensation intact SKIN: Warm, dry, normal turgor. +Diffuse urticarial rash to the limbs and trunk. No mucosal involvement. SPINE: No midline tenderness. No ecchymosis. +Soft tissue tenderness to R and L mid-back, just inferolateral to the scapulae. - Medical Decision Making Pt with multiple complaints, vague historian. Unclear if she had the diffuse hives earlier today (likely not, based on not receiving steroids). Started her on prednisone in the ED. No signs of airway compromise. Gave benadryl, which will help both the urticaria as well as the vertigo. Discharge - Discharge Information Problems reviewed: Yes Clinical Impression/Diagnosis: Urticaria Allergic reaction Qualifiers: Encounter type: initial encounter Qualified Code(s): T78.40XA - Allergy, unspecified, initial encounter Condition: Stable Disposition: HOME - Additional Discharge Information Prescriptions: Diphenhydramine [Benadryl -] 25 mg PO PRN PRN 12 Days #4 capsule PRN Reason: Allergies Prednisone [Prednisone 50 MG TABLETS] 50 mg PO DAILY #4 tablet - Follow up/Referral Referrals: Jonathan West [Primary Care Provider] - - Patient Discharge Instructions Patient Printed Discharge Instructions: DI for Hives, DI for COVID-19 (Suspected or Confirmed ), Coronavirus Disease 2018 Additional Instructions: You were seen in the ED for vertigo and an allergic reaction. We tested your blood, gave you medicine, and deemed you safe for discharge. We sent you 2 medicines to [facility]. Take the predinisone starting tomorrow morning. Take it daily. Take the benadryl as needed. It can make you sleepy. Do not drive after taking it. Follow up with your primary doctor within 24hours of leaving the ED today, and return if any severe symptoms persist or return. - Post Discharge Activity
[2019-12-12 23:15] LABS: PLATELET ESTIMATE INCREASED
[2019-12-13 00:02] VITALS: BP 126/84; PULSE 76; TEMP 98.3
== END 2019-12-13 00:10 | disposition home or self-care (01) ==
LOC: JER 21:10
PROC: 3E033GC Introduction of Other Therapeutic Substance into Peripheral Vein, Percutaneous Approach (ICD-10-PCS; principal; 2019-12-12)
DX: L50.0 Allergic urticaria (principal); T78.40XA Allergy, unspecified, initial encounter
CPT/HCPCS: 36415; 82550; 84484; 85025; 99284-25; C9803; U0003

== ENCOUNTER 2019-12-13 21:43 | Emergency (ER) | payer OTHER ==
[2019-12-13 21:59] VITALS: BP 115/65; PULSE 108; TEMP 99.8; BMI 26.5
--- OUTSIDE RECORDS SUMMARY | 2019-12-13 22:00 | XMS ---
:1970 Author Organization [facility] Care Team Providers Name Role Phone West, Angella Unavailable Unavailable West, Angelal Unavailable Unavailable West, Angella Unavailable Unavailable West, [...] is protected by Article 27-F of the [facility] Public Health law. If you continue you may haveaccess to information: Regarding HIV / AIDS; Provided by facilities licensed or operated by the [facility] Office of Mental Health; or Provided by the [facility] Office for People With Developmental Disabilities. If such information is present, then the following [facility] mandated warning applies: This information has been [...] law may result in a fine or care home sentence or both. A general authorization for the release of medical or other information is NOT sufficient authorization for further disclosure. Encounters Encounter Providers Location Date Indications Data Source(s ) Attender: Angella 12/02/2019 [facility] ([facility] 12:00:00 AM EDT Medical S maddy) Office Attender: Angella West 12/02/2019 12:00:00 AM EDT MEDGEN ([facility]) Office Attender: Angella West 12/02/2019 12:00:00 AM EDT [facility] Office Attender: Angella West 12/02/2019 12:00:00 AM EDT [facility] Office Outpatient [address] [facility] 11/04/2019 12:00:00 AM eCW1 ([facility]) Immunizations Vaccine Date Status Description Data Source(s) IIV3 03/12/2019 12:00:00 AM completed MEDGE N ([employer] EST Service) Medications Medication Brand Start Product Dose Route Administrative Pharmacy [facility] Indications Reaction Description Data Name Date [...] 30 complet METO PROLOL MEDGEN succinate OLOL 2020 EXTENDED ed SUCCINATE E R ([facility] 25 MG SUCCIN 12:00: RELEASE Medical Extended ATE 00 AM Service) Release ER:[id number] EDT Oral Tablet 430 METOPROLOL SUCCINATE [id number] NITROFURANT MACROB 12/01/ CAPSULE 14 complet MAC FRANKIE MEDGEN OIN, ID:[id number] 2019 ed ([facility] MACROCRYSTA 712 12:00: Medica l LS 25 MG / 00 AM Service) Nitrofurant EDT oin, Monohydrate 75 MG Oral Capsule [Macrobid] MACROBID:[id number] 0.5 ML TRULIC 08/22/ SOLUTION 4 complet TRULICI TY MEDGEN dulaglutide ITY 2019 ed PEN ([facility] 1.5 MG/ML PEN:15 12:00: Medica l Auto-Inject 98562 00 AM Servic e) or EDT [Trulicity] TRULICITY PEN:[id number] Estradiol ESTRAD 08/22/ CREAM 1 complet ESTRADI OL MEDGEN 0.1 MG/ML IOL 2019 ed VAGINAL ([facility] ay Vaginal VAGINA 12:00: Medical Cream L:3101 00 AM Service) ESTRADIOL 69 EDT VAGINAL:310 169 BYDUREON complet BYDUREON ME DGEN BCISE:2018 ed BCISE ([facility] 69 12:00: Medical 00 AM Service) EDT Sulfamethox BACTRI 10/16/ TABLET 10 complet BACT RIM DS MEDGEN azole 800 M 2019 ed ([facility] MG / DS:849 12:00: Medical Trimethopri 580 00 AM Service ) m 160 MG EDT Oral Tablet [Bactrim] BACTRIM [id number] Insurance Providers Payer name Policy type Policy ID Covered Covered republican's Policy P leti / Coverage republican ID relationship to Courtney Inf ormation type courtney GHULAM [id number] SP [id number] 600 [facility] NON [facility] [id number] [id number] [place] [id number] 1 [id number] 400 [place] [id number] SP [id number] Problems, Conditions, and Diagnoses Code Display Name Description Problem Type Effective Data Sour ce(s) Dates I10 [id number] Essential Problem 11/04/2019 eCW1 ([facility] 12:00:00 [...] Source(s) Documentation of current 12/02/2019 MED GEN ([facility] medications (procedure) 12:00:00 AM EDT edical Service) Documentation of current 12/02/2019 MED GEN ([facility] medications (procedure) 12:00:00 AM EDT edical Service) [...] Service) Documentation of current 09/01/2019 MED GEN ([facility] medications (procedure) 12:00:00 AM EDT edical Service) Documentation of current 09/01/2019 MED GEN ([facility] medications (procedure) 12:00:00 AM EDT edical Service) Documentation of current 07/14/2019 MED GEN ([facility] medications (procedure) 12:00:00 AM EDT edical Service) Documentation of current 07/14/2019 MED GEN ([facility] medications (procedure) 12:00:00 AM EDT edical Service) Documentation of current 03/12/2019 MED GEN ([facility] medications (procedure) 12:00:00 AM EST edical Service) Documentation of current 03/12/2019 MED GEN ([facility] medications (procedure) 12:00:00 AM EST edical Service) Documentation of current 03/12/2019 MED GEN ([facility] medications (procedure) 12:00:00 AM EST M edical Service) Results ID Date Data Source ECG [facility] 11/04/2019 10:36:39 AM EDT eCW1 ([facility]) Name Value Range Interpretation Code Description Data Josefina rce(s) Supporting Document(s ) ECG [facility] eCW1 ([facility]) ID Date Data Source [id number] 08/24/2019 12:00:00 AM EDT [facility] ([facility]) Name Value Range Interpretation Description Data Sup porting Code Source(s) Document(s ) GLUCOSE 63 mg/dL Below low normal MEDGEN NONFASTING,SERUM ([facility]) SODIUM, SERUM 137 Normal (applies MEDGEN mEq/L to non-numeric ([facility] results) Medical Service) POTASSIUM, SERUM 4.1 Normal (applies MEDGEN mEq/L to non-numeric ([facility] results) Medical Service) Carbon dioxide 27 mEq/L Normal (applies MEDGEN [VFr/PPres] in to non-numeric ([facility] Gas delivery results) Medical system Service) CHLORIDE, SERUM 101 Normal (applies MEDGEN mEq/L to non-numeric ([facility] results) Medical Service) BLOOD UREA 14 mg/dL Normal (applies MEDGEN NITROGEN to non-numeric ([facility] results) Medical Service) Anion gap in 13.1 Normal (applies MEDGEN Body fluid mEq/L to non-numeric ([facility] results) Medical Service) CREATININE, 0.70 Normal (applies MEDGEN SERUM mg/dL to non-numeric ([facility] results) Medical Service) TOTAL PROTEIN 7.6 g/dL Normal (applies MEDGEN to non-numeric ([facility] results) Medical Service) CALCIUM, SERUM 9.5 Normal (applies MEDGEN mg/dL to non-numeric ([facility] results) Medical Service) Microalbumin 4.6 g/dL Normal (applies MEDGEN [Mass/time] in to non-numeric ([facility] Urine collected results) Medical for unspecified Service) duration A/G RATIO 1.53 Normal (applies MEDGEN g/dl to non-numeric ([facility] results) Medical Service) Globulin 3.0 gldl Normal (applies MEDGEN [Mass/time] in to non-numeric ([facility] 24 hour Urine results) Medical Service) BILIRUBIN, TOTAL 0.6 Normal (applies MEDGEN mg/dL to non-numeric ([facility] results) Medical Service) ALT (SGPT) 10 U/L Normal (applies MEDGEN to non-numeric ([facility] results) Medical Service) ALKALINE 56 U/L Normal (applies MEDGEN PHOSPHATASE, ALP to non-numeric ([facility] results) Medical Service) AST 21 U/L Normal (applies MEDGEN to non-numeric ([facility] results) Medical Service) EGFR AFR 115 Normal (applies MEDGEN BAHAMIAN mL/min/1 to non-numeric ([facility] .73m2 results) Medical Service) EGFR NON AFR 95 Normal (applies MEDGEN B[place]IAN mL/min/1 to non-numeric ([facility] .73m2 results) Medical Service) ID Date Data Source [id number] 08/24/2019 12:00:00 AM EDT [facility] ([facility]) Name Value Range Interpretation Code Description Data Josefina rce(s) Supporting Document(s ) MEASLES IGG >300.0 Normal (applies to MEDGEN non-numeric ([facility] results) Medical Service) ID Date Data Source [id number] 08/24/2019 12:00:00 AM EDT [facility] ([facility]) Name Value Range Interpretation Code Description Data Josefina rce(s) Supporting Document(s ) MUMPS IGG >300.0 Normal (applies to MEDGEN non-numeric results) ([facility]) ID Date Data Source [id number] 08/24/2019 12:00:00 AM EDT MEDGEN ([facility]) Name Value Range Interpretation Description Data Sup porting Code Source(s) Document(s ) RUBELLA IGG 29.2 Normal (applies to MEDGEN AB INDEX non-numeric ([facility] results) Medical Service) ID Date Data Source [id number] 08/24/2019 12:00:00 AM EDT MEDGEN ([facility]) Name Value Range Interpretation Code Description Data Supporting Source(s) Document(s ) VARICELLA- 2768 INDEX Normal (applies to MEDGEN ZOSTER non-numeric ([facility] VIRUS IGG results) Medical Service) ID Date Data Source [id number] 08/24/2019 12:00:00 AM EDT [facility] ([facility]) Name Value Range Interpretation Description Data Sup porting Code Source(s) Document(s ) WBC 4.9 Normal (applies MEDGEN 10(3)/uL to non-numeric ([facility] results) Medical Service) RBC 4.2 Normal (applies MEDGEN 10(6)/uL to non-numeric ([facility] results) Medical Service) Hematocrit 37.3 % Normal (applies MEDGEN [Pure volume to non-numeric ([facility] fraction] of results) Medical Blood by Service) Automated count Hemoglobin 11.7 g/dL Below low normal MEDGEN [Mass/volume] ([facility] in Mixed venous Medical blood by Service) Oximetry MCV 89.2 fL Normal (applies MEDGEN to non-numeric ([facility] results) Medical Service) MCH 28 pg Normal (applies MEDGEN to non-numeric ([facility] results) Medical Service) MCHC 31 g/dL Normal (applies MEDGEN to non-numeric ([facility] results) Medical Service) RDWSD 42.6 fL Normal (applies MEDGEN to non-numeric ([facility] results) Medical Service) Platelet Count 298 Normal (applies MEDGEN 10(3)/uL to non-numeric ([facility] results) Medical Service) RDWCV 13.1 % Normal (applies MEDGEN to non-numeric ([facility] results) Medical Service) MPV 11.8 fL Normal (applies MEDGEN to non-numeric ([facility] results) Medical Service) Neutrophil Abs 2.51 Normal (applies MEDGEN 10(3)/uL to non-numeric ([facility] results) Medical Service) Lymphocyte Abs 1.56 Normal [...] 5.8 % Normal (applies MEDGEN to non-numeric ([facility] results) Medical Service) Basophil % 1.4 % Normal (applies MEDGEN to non-numeric ([facility] results) Medical Service) Immature 0.20 % Normal (applies MEDGEN Granulocyte % to non-numeric ([facility] results) Medical Service) NRBC % 0.0 % Normal (applies MEDGEN to non-numeric ([facility] results) Medical Service) NRBC Abs 0.00 Normal (applies MEDGEN 10(3)/uL to non-numeric ([facility] results) Medical Service) ID Date Data Source [id number] 08/24/2019 12:00:00 AM EDT [facility] ([facility]) Name Value Range Interpretation Description Data Sup porting Code Source(s) Document(s ) Cholesterol 173 Normal (applies MEDGEN [Moles/volume] mg/dL to non-numeric ([facility] in Pericardial results) Medical fluid Service) LDL CALCULATION 82.6 Normal (applies MEDGEN mg/dL to non-numeric ([facility] results) Medical Service) CHOL/HDL RATIO 2.58 Normal (applies MEDGEN ratio to non-numeric ([facility] results) Medical Service) VLDL CALCULATION 23.4 Normal (applies MEDGEN mg/dl to non-numeric ([facility] results) Medical Service) HDL CHOLESTEROL 67 mg/dL Normal (applies MEDGEN to non-numeric ([facility] results) Medical Service) TRIGLYCERIDES 117 Normal (applies MEDGEN mg/dL to non-numeric ([facility] results) Medical Service) ID Date Data Source [id number] 08/24/2019 12:00:00 AM EDT [facility] ([facility]) Name Value Range Interpretation Description Data Sup porting Code Source(s) Document(s ) TSH,3RD 1.90 Normal (applies to MEDGEN GENERATION uIU/mL non-numeric ([facility] results) Medical Service) T4 TOTAL 7.6 ug/dL Normal (applies to MEDGEN THYROXINE non-numeric ([facility] results) Medical Service) T3 TOTAL 90 ng/dL Normal (applies to MEDGEN non-numeric ([facility] results) Medical Service) ID Date Data Source [id number] 08/24/2019 12:00:00 AM EDT [facility] ([facility]) Name Value Range Interpretation Code Description Data Supporting Source(s) Document(s ) SARS-CoV- 4.84 AU/mL Normal (applies to MEDGEN 2 IGG QNT non-numeric ([facility] results) Medical Service) SARS-CoV- NEGATIVE Normal (applies to MEDGEN 2 IGG non-numeric ([facility] results) Medical Service) ID Date Data Source [id number] 08/24/2019 12:00:00 AM EDT [facility] ([facility]) Name Value Range Interpretation Description Data Sup porting Code Source(s) Document(s ) Amphetamines NEGATIVE Normal (applies MEDGEN [Presence] in to non-numeric ([facility] Stool results) Medical Service) BENZODIAZEPINE NEGATIVE Normal (applies MEDGEN to non-numeric ([facility] results) Medical Service) Barbiturates NEGATIVE Normal (applies MEDGEN [Mass/volume] in to non-numeric ([facility] Serum or Plasma results) Medical Service) Methadone NEGATIVE Normal (applies [facility] [Mass/volume] [facility]) Opiates NEGATIVE Normal (applies MEDGEN [Presence] in to non-numeric ([facility] Unknown substance results) Medical by Confirmatory Service) method Cocaine NEGATIVE Normal (applies MEDGEN [Presence] in to non-numeric ([facility] Unknown substance results) Medical by Confirmatory Service) method PCP NEGATIVE Normal (applies MEDGEN (PHENCYCLIDINE) to non-numeric ([facility] results) Medical Service) Cannabinoids NEGATIVE Normal (applies MEDGEN [Presence] in to non-numeric ([facility] Unknown substance results) Medical by Confirmatory Service) method Propoxyphene NEGATIVE Normal (applies MEDGEN [Presence] in to non-numeric ([facility] Meconium by results) Medical Screen method Service) Ethanol POSITIVE Abnormal MEDGEN [Mass/volume] in (applies to ([facility] Urine collected non-numeric Medical for unspecified results) Service) duration CREATININE,URINE 81.7 mg/dL Normal (applies MEDGEN to non-numeric ([facility] results) Medical Service) ID Date Data Source [id number] 08/24/2019 12:00:00 AM EDT [facility] ([facility]) Name Value Range Interpretation Description Data Sup porting Code Source(s) Document(s ) TB1 0.0955 Normal (applies MEDGEN to non-numeric ([facility] results) Medical Service) NIL 0.0231 Normal (applies MEDGEN to non-numeric ([facility] results) Medical Service) TB2 0.051 Normal (applies MEDGEN to non-numeric ([facility] results) Medical Service) OLYA >10.0 Normal (applies MEDGEN to non-numeric ([facility] results) Medical Service) QUANTIFERON Negative Normal (applies MEDGEN PLUS to non-numeric ([facility] results) Medical Service) Procedure Social History Code Duration Value Status Description Data Source(s ) Smoking 12/02/2019 Never smoked completed Never smoked [facility] ([facility] 12:00:00 AM EDT Medical S ervice) Smoking 12/02/2019 never, g 3 p3, completed never, g 3 p3, no MED GEN ([facility] 12:00:00 AM EDT no tob [facility] Smoking 11/04/2019 Never Smoker completed Never Smoker eCW1 ([facility] 12:00:00 AM EDT [facility]) Vital Signs ID Date Data Source UNK Name Value Range Interpretation Code Description Data Source(s) Body height 63 in 63 in MEDGEN ([facility]) Body weight 150 lb 150 lb MEDGEN ([facility]) Systolic blood 120 mm[Hg] 120 mm[Hg] [facility] ([facility]) Diastolic blood 80 mm[Hg] 80 mm[Hg] MEDGEN ([facility] Servic e) Body mass index 26.6 kg/m2 26.6 kg/m2 MEDGEN ([facility] (BMI) [Ratio] Medical Ser vice) Respiratory rate 16 /min 16 /min [facility] ( [facility]) Heart rate 72 /min 72 /min MEDGEN ([facility] Medical Servic e) Diastolic blood 87 mm[Hg] 87 mm[Hg] eCW1 ([facility]) Systolic blood 123 mm[Hg] 123 mm[Hg] eCW1 ([facility]) Body temperature 98.1 [degF] 98.1 [degF] eCW1 ( [facility]) Heart rate 64 /min 64 /min eCW1 ([facility]) Body mass index 28.53 kg/m2 28.53 kg/m2 eCW1 ([facility] (BMI) [Ratio] [facility]) Body weight 156 [lb_av] 156 [lb_av] eCW1 ([facility]) Body height [in_i] eCW1 ([facility]) Body height 63 in 63 in MEDGEN ([facility] e) Body weight [...] rate 16 /min 16 /min [facility] ( [facility]) Heart rate 72 /min 72 /min [facility] ([facility]) Body height 63 in 63 in MEDGEN ([facility]) Body weight [...] rate 16 /min 16 /min [facility] ( [facility]) Heart rate 72 /min [...] rate 16 /min 16 /min [facility] ( [facility]) Heart rate 72 /min 72 /min [facility] ([facility]) Body height 63 in 63 in MEDGEN ([facility]) Body weight [...] Heart rate 72 /min 72 /min [facility] ([facility]) Body height 63 [...]
--- NOTE | 2019-12-13 23:07 | PDOC ---
History of Present Illness - General Chief Complaint: Edema Stated Complaint: ALLERGIC REACTION Time Seen by Provider: 12/13/19 23:07 - History of Present Illness Initial Comments: Juani Beth is a 49yo woman with a PMH of HTN, seen twice in the ED yesterday for allergic reaction, who presents with continued diffuse hives and itching. Her daughter is also at bedside today. Ms Beth denies any difficulty breathing, difficulty swallowing, inability to tolerate secretions, change in voice, or other new symptoms. However, she says that she cannot sleep due to severe itching. 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 The daughter, present in the room, stated that she was unaware any medications were prescribed. Past History - Medical History Allergies/Adverse Reactions: Allergies Allergy/AdvReac Type Severity Reaction Status Date / Time No Known Allergies Allergy Verified 12/12/19 21:23 Home Medications: Ambulatory Orders Diphenhydramine [Benadryl -] 25 mg PO PRN PRN 12 Days #4 capsule 12/12/19 Prednisone [Prednisone 50 MG TABLETS] 50 mg PO DAILY #4 tablet 12/12/19 Asthma: No Cancer: No Cardiac Disorders: No COPD: No Diabetes: Yes (GESTATIONAL) HTN: Yes (???) Seizures: No Thyroid Disease: No - Surgical History Cholecystectomy: Yes - Reproductive History Is Patient Now?: No Spontaneous : 0 - Immunization History Immunization Up to Date: Yes - Psycho-Social/Smoking History Smoking Status: No Smoking History: Never smoked Have you smoked in the past 12 months: Yes Number of Cigarettes Smoked Daily: 10 - Substance Abuse Hx (Audit-C & DAST Scrn) How often the patient has a drink containing alcohol: Never Score: In Men: 4 or > Positive; In Women: 3 or > Positive: 0 Screen Result (Pos requires Nsg. Audit-10AR): Negative Review of Systems - Review of Systems Comments:: General: No fevers, no chills, no weight or appetite change, no malaise HEENT: No changes in vision, no changes in hearing, no congestion, no sore throat CV: No chest pain, no palpitations, no LE edema Pulm: No SOB, no cough, no wheezing GI: No nausea or vomiting, no change in bowel habits, no melena : No frequency, no urgency, no dysuria Musc: No back pain, no joint swelling, no recent injury Skin: See HPI Endo: No excessive thirst, no heat/cold intolerance Heme: No unusual bruising or bleeding, no swollen glands Neuro: No syncope, no numbness/tingling, no focal weakness Vasc: No claudication Psych: No recent change in mood, no SI or HI *Physical Exam - Vital Signs Last Vital Signs Temp Pulse Resp BP Pulse Ox 99.8 F H 108 H 20 115/65 98 12/13/19 21:53 12/13/19 21:53 12/13/19 21:53 12/13/19 21:53 12/13/19 21:53 - Physical Exam General: Uncomfortable, constant itching, in no acute distress HEENT: PERRL, EOMI, MMM, voice normal, normal neck ROM. Uvula midline. No tonsillar or pharyngeal swelling noted. Cards: RRR, no murmur appreciated Pulm: Comfortable on room air, clear to auscultation bilaterally. No wheezing appreciated. Abd: Soft, nontender, nondistended Ext: Atraumatic. No LE edema. ROM intact. WWP Skin: Diffuse hives Neuro: A&Ox3, CN grossly intact, normal speech, motor/sensory grossly intact and symmetric Psych: Mood appropriate to situation Medical Decision Making - Medical Decision Making 12/13/19 23:07 Juani Beth is a 49yo woman with a PMH of HTN, seen twice in the ED yesterday for allergic reaction, who presents with continued diffuse hives and itching. 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 - Pt appears uncomfortable with constant itching and diffuse hives. Additional doses of prednisone, Benadryl and Pepcid ordered for symptoms - No airway or oropharyngeal involvement seen - Will reassess 12/14/19 00:11 - Patient's nurse attemtped to give medications, patient was not in her room - Will attempt to find her in the ED 12/14/19 00:21 - Patient still not seen in her room. Assumed to have left prior to receiving medications - Home care, including dosing and timing of previously prescribed prednisone and diphenhydramine, had been discussed during initial history. Discussed with Dr Manuel Stuart PGY3 Discharge - Discharge Information Problems reviewed: Yes Clinical Impression/Diagnosis: Allergic reaction Qualifiers: Encounter type: subsequent encounter Qualified Code(s): T78.40XD - Allergy, unspecified, subsequent encounter Condition: Stable Disposition: HOME - Admission No - Follow up/Referral Referrals: Jonathan West [Primary Care Provider] - - Patient Discharge Instructions Patient Printed Discharge Instructions: DI for General Allergic Reactions Additional Instructions: Discharge Instructions: You were seen in the emergency department for rash and itching due to an allergic reaction. You were given medications for your symptoms. Home Care and Follow Up: - Please take the medications that were prescribed for you during your previous ED visit. Prednisone 50mg should be taken once per day for 4 days. Diphenhydramine (Benadryl) should be taken every 6 hours for rash or itching. - Follow up with your regular doctor if your symptoms do not improve within the next 2-3 days. - Seek immediate medical care for worsening symptoms, difficulty breathing, difficulty swallowing, drooling, changes in your voice, throat swelling, or any other medical emergency. - Post Discharge Activity
[2019-12-13] MEDS ORDERED: FAMOTIDINE 20 MG/50 ML IVPB 20 MG/50 ML MG IVPB ONE (23:21)
[2019-12-13] MEDS ORDERED: methylPREDNISolone NA SUCC 125 MG/2 ML VIAL IVPUSH ONE (23:21)
[2019-12-13] MEDS ORDERED: predniSONE 20 MG TABLET (UD) PO ONE (23:45)
[2019-12-13] MEDS ORDERED: FAMOTIDINE 10 MG TABLET PO ONE (23:45)
[2019-12-13] MEDS ORDERED: diphenhydrAMINE HCL 25 MG CAPSULE (FP) PO ONE (23:45)
--- NOTE | 2019-12-14 | PDOC ---
Documentation entered by Eleno Albarado SCRIBE, acting as scribe for Rosita Jackson MD. Rosita Jackson MD: This documentation has been prepared by the Per parmar Xhesika, SCRIBE, under my direction and personally reviewed by me in its entirety. I confirm that the documentation accurately reflects all work, treatment, procedures, and medical decision making performed by me. Attending Attestation - Resident Resident Name: Deedee Stuart - ED Attending Attestation I have performed the following: I have examined & evaluated the patient, The case was reviewed & discussed with the resident, I agree w/resident's findings & plan, Exceptions are as noted - HPI HPI: 12/13/19 23:11 The patient is a 49 year old female with a significant PMH of htn who presents to the emergency department with continued itching and hives s/p allergic reaction. Pt was seen here in the ED 12/11 s/p allergic reaction s/p eating chicken Salad from [employer], was prescribed prednisone and diphenhydramine however has not been able to pick it up. Pt states she has not been able to sleep due to severe itching Pt denies any chest pain, n/v, sob, palpitations, abd pain, back pain, shortness of breath or diaphoresis. Pt does not feel light headed while in the ED. No prior history of allergies. No new meds. Allergies: NKDA PCP: Jonathan West - Physicial Exam PE: 12/13/19 23:57 General: well appearing Skin: multiple areas of wheals on b/l upper extremities and torso HEENT: NCAT, tongue/uvula midline, no lip or tongue swelling Chest: CTAB, good air entry, no stridor, no wheezes CVS: + s1 s2, RRR - Medical Decision Making 12/13/19 23:59 49 yo F with allergic reaction, no airway involvement, appears to be cutaneous symptoms only at this time. Plan: -benadryl -steroids -pepcid -d/c with return precautions, instructed to garbage pick up man her rx from the pharmacy, pt and her daughter are aware, recommend PMD f/u This clinical encounter is taking place during a federal and state health care emergency attributable to the novel [place] Virus pandemic. The [place] of the Department of Health and Human Services has declared, purs uant to the Public Health Service Act 319F-3 (42 U.S[place]C. 247d-6d), that a covered persons activities related to medical countermeasures against COVID-19 will be immune from liability under Federal and State law. Discharge - Discharge Information Problems reviewed: Yes Clinical Impression/Diagnosis: Allergic reaction Qualifiers: Encounter type: subsequent encounter Qualified Code(s): T78.40XD - Allergy, unspecified, subsequent encounter - Follow up/Referral Referrals: Jonathan West [Primary Care Provider] - - Patient Discharge Instructions - Post Discharge Activity
[2019-12-14] MEDS ORDERED: diphenhydrAMINE HCL 25 MG CAPSULE (FP) PO ONE (00:06)
[2019-12-14] MEDS ORDERED: predniSONE 20 MG TABLET (UD) ONE (00:06)
[2019-12-14] MEDS ORDERED: FAMOTIDINE 20 MG TABLET ONE (00:07)
== END 2019-12-14 | disposition home or self-care (01) ==
LOC: JER 21:43
PROC: 3E033GC Introduction of Other Therapeutic Substance into Peripheral Vein, Percutaneous Approach (ICD-10-PCS; principal; 2019-12-13)
DX: T78.40XA Allergy, unspecified, initial encounter (principal)
CPT/HCPCS: 99284-25

== ENCOUNTER 2020-03-10 19:46 | Emergency (ER) | payer OTHER ==
[2020-03-10 20:00] VITALS: BP 126/91; PULSE 66; TEMP 98.6; BMI 26.5
[2020-03-10] MEDS ORDERED: FOLIC ACID INJECTION - 1 MG, THIAMINE HCL 100 MG, MULTIVIT INJECTION ADULT 10 ML in SOD... IVPB ONE (20:24)
[2020-03-10] MEDS ORDERED: THIAMINE HCL 200 MG/2 ML VIAL ONE (20:38)
[2020-03-10 20:39] LABS: BASO % 2.5 % (0-2.0); EOS % 5.2 % (0-4.5); HEMATOCRIT 37.1 % (32.4-45.2); HEMOGLOBIN 12.3 GM/dl (10.7-15.3); LYMPH % 32.7 % (8-40); MCH 28.7 pg (25.7-33.7); MCHC 33.2 g/dl (32.0-36.0); MEAN CELL VOLUME 86.3 fl (80-96); MEAN PLT VOLUME 8.6 fl (7.5-11.1); MONO % 7.8 % (3.8-10.2); NEUT % 51.8 % (42.8-82.8); PLATELET COUNT 455 K/MM3 (134-434); RBC 4.29 M/mm3 (3.60-5.2); RDW 13.5 % (11.6-15.6); WHITE BLOOD COUNT 4.9 K/mm3 (4.0-10.8)
[2020-03-10] MEDS ORDERED: FOLIC ACID 5 MG/1 ML ONE (20:40)
[2020-03-10] MEDS ORDERED: MULTIVIT INJ. ADULT COMBO WITH VIT K 1 COMBO 10 ML VIAL IV ONE (20:40)
[2020-03-10 20:49] LABS: ALBUMIN 4.5 g/dl (3.4-5.0); BILIRUBIN,TOTAL 0.5 mg/dl (0.2-1); CALCIUM 9.4 mg/dl (8.5-10); CREATININE 0.7 mg/dl (0.55-1.3); TOT PROT 7.9 g/dl (6.4-8.2)
[2020-03-10] MEDS ORDERED: MAGNESIUM SULF 50% (8.12 MEQ/2 ML-1 GM VIAL) IVPB ONE (21:10)
[2020-03-10] MEDS ORDERED: POTASSIUM CHLORIDE TABS 20 MEQ TABLET.ER (FP) PO ONE ×3 (21:10→21:25)
[2020-03-10] MEDS ORDERED: MAGNESIUM SULF 50% (8.12 MEQ/2 ML-1 GM VIAL) ONE (21:24)
== END 2020-03-10 22:02 | disposition home or self-care (01) ==
LOC: FER 19:46
PROC: 3E033GC Introduction of Other Therapeutic Substance into Peripheral Vein, Percutaneous Approach (ICD-10-PCS; principal; 2020-03-10)
PROC: 3E033GC Introduction of Other Therapeutic Substance into Peripheral Vein, Percutaneous Approach (ICD-10-PCS; 2020-03-10)
DX: F43.0 Acute stress reaction (principal)
CPT/HCPCS: 36415; 71046-TC-FY; 80053; 82550; 84484; 85025; 93005; 99285-25

== ENCOUNTER 2021-12-22 02:54 | Emergency (ER) | payer OTHER ==
[2021-12-22 03:18] VITALS: PULSE 56; RESP 20; TEMP 97.9; BMI 29.8
[2021-12-22 04:27] VITALS: BP 126/84
== END 2021-12-22 04:36 | disposition home or self-care (01) ==
LOC: JER 02:54
DX: R06.02 Shortness of breath (principal)
CPT/HCPCS: 93005; 93010; 99283-25

== ENCOUNTER 2023-06-17 23:55 | Emergency (ER) | payer OTHER ==
[2023-06-18 00:02] VITALS: BP 171/86; PULSE 69; RESP 18; TEMP 97.9; BMI 26.5
== END 2023-06-18 02:32 | disposition home or self-care (01) ==
LOC: JER 23:55
DX: I10 Essential (primary) hypertension (principal); R42 Dizziness and giddiness
CPT/HCPCS: 99283-25

== ENCOUNTER 2024-06-26 15:53 | Emergency (ER) | payer OTHER ==
[2024-06-26 16:06] VITALS: BMI 27.4
[2024-06-26 17:15] VITALS: BP 137/88; PULSE 66; RESP 17; TEMP 98.4
[2024-06-26] MEDS ORDERED: KETOROLAC TROMETHAMINE 15 MG/ML VIAL ONE (17:39)
[2024-06-26] MEDS ORDERED: METOCLOPRAMIDE HCL INJECTION 10 MG/2 ML VIAL ONE (17:39)
[2024-06-26 17:51] LABS: ABSOLUTE IMMATURE GRANULOCYTES 0.01 x10^3/uL (0.0-0.031); BASOPHILS # 0.06 x10^3/uL (0.01-0.08); EOSINOPHIL % 8.1 % (0.7-5.8); EOSINOPHILS # 0.44 x10^3/uL (0.04-0.36); HEMATOCRIT 39.8 % (34.1-44.9); HEMOGLOBIN 12.4 g/dL (11.2-15.7); MCHC 31.2 g/dl (32.2-35.5); MEAN CELL VOLUME 88.6 fl (79.4-94.8); MEAN PLT VOLUME 9.9 fl (9.4-12.3); MONOCYTE # 0.32 x10^3/uL (0.24-0.86); MONOCYTE % 5.9 % (4.7-12.5); PLATELET COUNT 428 x10^3/uL (182-369)
[2024-06-26 18:10] LABS: POTASSIUM 4.3 mmol/L (3.5-5.1)
[2024-06-26 18:11] LABS: CALCIUM 10.1 mg/dL (8.5-10.1)
[2024-06-26 18:13] LABS: ALBUMIN 4.2 g/dl (3.4-5.0); BLOOD UREA NITROGEN 4.8 mg/dL (7-18); MAGNESIUM 2.3 mg/dL (1.8-2.4)
[2024-06-26 18:16] LABS: BILIRUBIN,TOTAL 0.4 mg/dL (0.2-1); CREATININE 0.7 mg/dL (0.55-1.3); TOT PROT 7.9 g/dl (6.4-8.2)
[2024-06-26] MEDS: KETOROLAC TROMETHAMINE 15 MG/ML VIAL IVPUSH ONE (18:27)
[2024-06-26] MEDS: METOCLOPRAMIDE HCL INJECTION 10 MG/2 ML VIAL IVPUSH ONE (18:28)
[2024-06-26] MEDS: SODIUM CHLORIDE 1,000 ML IV STA (18:28)
[2024-06-26] MEDS: IBUPROFEN 400 MG TABLET (FP) PO ONE (18:28)
[2024-06-26] MEDS ORDERED: ACETAMINOPHEN 325 MG TABLET (FP) ONE (18:29)
[2024-06-26] MEDS: ACETAMINOPHEN 325 MG TABLET (FP) PO ONE (18:34)
== END 2024-06-26 19:53 | disposition left against medical advice (07) ==
LOC: JER 15:53
DX: R51.9 Headache, unspecified (principal); R53.83 Other fatigue; R42 Dizziness and giddiness
CPT/HCPCS: 36415; 80053; 83735; 85025; 93005; 93010; 99283-25